=== PATIENT | female | born 1960 | race Caucasian/White ===

== ENCOUNTER 2016-07-12 13:22 | Emergency (ER) | payer MEDICARE ==
[2016-07-12 14:21] VITALS: BP 142/78
--- NOTE | 2016-07-12 14:40 | UC ---
Throat Pain/Nasal Malcolm HPI - HPI Summary HPI Summary: complaint of nasal congestion and cough that started 4 daysa ago non productive cough intermittent headaches, right ear feels plugged mild sore throat last week several bouts of N/V/D for 3 days denies fever and chills taking dayquil and robitussin for cough without relief hasn't used inhaler for symptoms during this illness. hx of rheumatoid arthritis and can't have remicade infusion until she feels better. has CT Scan for her lower back pain today - History of Current Complaint Chief Complaint: UCRespiratory Stated Complaint: COUGH, CONGESTION Hx Obtained From: Patient Hx Last Menstrual Period: 2002 - Allergies/Home Medications Allergies/Adverse Reactions: Allergies Allergy/AdvReac Type Severity Reaction Status Date / Time Amoxicillin Allergy GI Upset Verified 07/12/16 14:21 Cephalexin [From Keflex] Allergy Hives Verified 07/12/16 14:21 Simvastatin Allergy Fatigue Verified 07/12/16 14:21 PMH/Surg Hx/FS Hx/Imm Hx Previously Healthy: No - rhuematoid arthritis Endocrine History Of: Denies: Diabetes Cardiovascular History Of: Reports: Hypertension Denies: Pacemaker/ICD Respiratory History Of: Reports: Asthma, Bronchitis - HX OF BUT NOT RECENTLY LAST 08/2014 GI/ History Of: Denies: Renal Disease Psychological History Of: Reports: Anxiety - BIPOLAR, Depression - BIPOLAR - Surgical History Surgical History: Yes Surgery Procedure, Year, and Place: LAPROSCOPIC EDOMETRIOSIS, LT SHOULDER, HYSTERECTOMY, 1992 DISKECTOMY,LOW BACK SURGERY 2003 HEMILAMINECTOMY/DISKECTOMY, APPENDECTOMY, ARTHROSCOPIC ON BOTH KNEES, TOTAL RT KNEE REPLACEMENT, THROAT SURGERY,LEFT HAND SURGERY FOR BOXER FRACTURE - Family History Known Family History: Negative: Cardiac Disease, Hypertension, Diabetes - Social History Occupation: Disabled Lives: With Family Alcohol Use: None Substance Use Type: None Smoking Status (MU): Light Every Day Tobacco Smoker Type: Cigarettes Amount Used/How Often: 1/2 PPD X 7 YEARS Have You Smoked in the Last Year: Yes Cessation Counseling: Patient Advised to Stop Review of Systems Constitutional: Negative Skin: Negative Eyes: Negative ENT: Sore Throat, Nasal Discharge Respiratory: Cough Cardiovascular: Negative Gastrointestinal: Negative Genitourinary: Negative Motor: Negative Neurovascular: Negative Musculoskeletal: Negative Neurological: Negative Psychological: Negative All Other Systems Reviewed And Are Negative: Yes Physical Exam Triage Information Reviewed: Yes Appearance: No Pain Distress, Well-Nourished, Obese Vital Signs: Initial Vital Signs Temp 97.2 F 07/12/16 14:13 Pulse 108 07/12/16 14:13 Resp 24 07/12/16 14:13 BP 142/78 07/12/16 14:13 Pulse Ox 99 07/12/16 14:13 Vital Signs Reviewed: Yes Eyes: Positive: Conjunctiva Clear ENT: Positive: Pharyngeal erythema, Nasal congestion, Nasal drainage, TM bulging. Negative: TM red Neck: Positive: No Lymphadenopathy Respiratory: Positive: Lungs clear, Normal breath sounds, No respiratory distress Cardiovascular: Positive: RRR, No Murmur, Pulses Normal, Brisk Capillary Refill Abdomen Description: Positive: Nontender, Soft Bowel Sounds: Positive: Present Musculoskeletal: Positive: No Edema Neurological: Positive: Alert Psychological Exam: Normal Skin Exam: Normal Throat Pain/Nasal Course/Dx - Course Course Of Treatment: exam completed. advised to incease fluids d/t ct dye that she had today - Differential Dx/Diagnosis Differential Diagnosis/HQI/PQRI: Influenza, URI Provider Diagnoses: URI, eustachion tube dysfunction Discharge - Discharge Plan Condition: Stable Disposition: HOME Prescriptions: Benzonatate CAP* [Tessalon CAP*] 100 mg PO TID #30 cap Fluticasone NASAL SPRAY 50MCG* [Flonase NASAL SPRAY 50MCG*] 2 spray BOTH NARES DAILY #1 btl Patient Education Materials: Upper Respiratory Infection (ED), Eustachian Tube Dysfunction (GEN) Referrals: Abigail Sherman MD [Primary Care Provider] - Additional Instructions: VIRAL UPPER RESPIRATORY INFECTION (COMMON COLD) What is Viral Upper Respiratory Infection? Viral upper respiratory infection is the medical term for the common cold. Respiratory infections can be caused by either a virus or bacteria. The common cold is caused by a virus. The virus travels through the air and can be passed easily from one person to another. This is one reason that it is so important to cover your mouth when you cough or sneeze. When you cover your mouth you will get the virus on your hands. If you touch something with that hand the virus is spread to the object you touch. Because of this you should be sure to wash your hands often when you have a cold. Symptoms usually begin 1 to 3 days after the virus takes hold in your body. Other people can catch your cold even before you start to notice symptoms, which is one reason why colds are hard to prevent. Symptoms May Include: Scratchiness or tickling in the throat Sore throat Stuffy nose Generalized aches and pains Coughing or sneezing Feeling tired Treatment Recommendations: Drink plenty of clear, nonalcoholic fluids, such as water, sports drinks, or juice. For example, an average adult should drink 8 ounces every hour, a child 6 to 10 years should drink 4 ounces every hour, and a child under 6 should drink 1 to 2 ounces every hour. You should rest as much as possible. You can use a cool-mist humidifier or steam vaporizer to increase air moisture. This will make it easier to breathe. Remember that a steam vaporizer may contain hot water that can cause severe wyatt. If you smoke, stopsmoke irritates bronchial passages. If you are coughing up mucus, and milk seems to make the sputum thicker, do not eat or drink foods that contain milk. You want to try to cough up mucous whenever possible so that you dont get pneumonia. Do not use cough suppressant medicine without your healthcare providers [place]. You should take all medications prescribed until completely gone, or as instructed. Non-prescription medicine such as acetaminophen (Tylenol) or ibuprofen (Motrin , Advil) may help your aches, pains, and fever. Do not take someone else's medicine, or penicillin tablets that you may have saved. You could cause a more serious problem than you already have. Don't bundle up to sweat out a fever. It only makes your fever worse. If you feel cold, cover up; if you feel warm, dress lightly.
== END 2016-07-12 15:24 | disposition home or self-care (01) ==
LOC: UCCORT 13:22
DX: J06.9 Acute upper respiratory infection, unspecified (principal); H69.91 Unspecified Eustachian tube disorder, right ear; E66.9 Obesity, unspecified; F17.210 Nicotine dependence, cigarettes, uncomplicated; Z96.651 Presence of right artificial knee joint; Z88.1 Allergy status to other antibiotic agents; Z88.8 Allergy status to other drugs, medicaments and biological substances; M51.36 Other intervertebral disc degeneration, lumbar region; M47.896 Other spondylosis, lumbar region; M48.06 Spinal stenosis, lumbar region; M51.27 Other intervertebral disc displacement, lumbosacral region; M96.1 Postlaminectomy syndrome, not elsewhere classified
CPT/HCPCS: 72158; 87502; 99212; A9579; G0463

== ENCOUNTER 2016-12-19 09:19 | Emergency (ER) | payer MEDICARE ==
--- NOTE | 2016-12-19 09:23 | UC ---
Minor Trauma HPI - HPI Summary HPI Summary: 56 year old female presents with left rib/hand/wrist pain post fall this weekend. - History of Current Complaint Stated Complaint: LEFT RIB, LEFT WRIST PAIN-FALL Time Seen by Provider: 12/19/16 09:22 Hx Last Menstrual Period: 2002 - Allergies/Home Medications Allergies/Adverse Reactions: Allergies Allergy/AdvReac Type Severity Reaction Status Date / Time Amoxicillin Allergy GI Upset Verified 12/19/16 09:30 Cephalexin [From Keflex] Allergy Hives Verified 12/19/16 09:30 Simvastatin Allergy See Comment Verified 12/19/16 09:30 Home Medications: Home Medications Fluticasone NASAL SPRAY 50MCG* [Flonase NASAL SPRAY 50MCG*] 2 spray BOTH NARES DAILY PRN 12/19/16 [History Confirmed 12/19/16] PMH/Surg Hx/FS Hx/Imm Hx - Surgical History Surgical History: Yes Surgery Procedure, Year, and Place: LAPROSCOPIC EDOMETRIOSIS, LT SHOULDER, HYSTERECTOMY, 1992 DISKECTOMY,LOW BACK SURGERY 2003 HEMILAMINECTOMY/DISKECTOMY, APPENDECTOMY, ARTHROSCOPIC ON BOTH KNEES, TOTAL RT KNEE REPLACEMENT, THROAT SURGERY,LEFT HAND SURGERY FOR BOXER FRACTURE - Family History Known Family History: Negative: Cardiac Disease, Hypertension, Diabetes - Social History Alcohol Use: None Substance Use Type: None Smoking Status (MU): Light Every Day Tobacco Smoker Type: Cigarettes Amount Used/How Often: 1/2 PPD X 7 YEARS Have You Smoked in the Last Year: Yes Review of Systems Constitutional: Negative Skin: Negative Eyes: Negative ENT: Negative Respiratory: Negative Cardiovascular: Negative Gastrointestinal: Negative Genitourinary: Negative Motor: Negative Neurovascular: Negative Musculoskeletal: Myalgia - left rib/hand/wrist swelling and pain Neurological: Negative Psychological: Negative All Other Systems Reviewed And Are Negative: Yes Physical Exam Triage Information Reviewed: Yes Eye Exam: Normal ENT Exam: Normal Dental Exam: Normal Neck exam: Normal Neck: Positive: 1 Respiratory Exam: Normal Cardiovascular Exam: Normal Abdominal Exam: Normal Musculoskeletal: Positive: Strength Limited @, ROM Limited @, Other: - left rib/ hand/wrist swelling and pain Neurological Exam: Normal Psychological Exam: Normal Skin Exam: Normal Minor Trauma Course/Dx - Differential Dx/Diagnosis Provider Diagnoses: left rib/hand/wrist sprain/contusion Discharge - Discharge Plan Condition: Stable Disposition: HOME Prescriptions: Acetaminop/Codeine 30 MG TAB* [Tylenol/Codeine 30 MG TAB*] 1 tab PO Q6H PRN #12 tab MDD 4 PRN Reason: Pain - Moderate To Severe Ibuprofen TAB* [Motrin TAB* 800 MG] 800 mg PO Q8H PRN #30 tab PRN Reason: Pain - Moderate Methocarbamol [Robaxin-750 MG TAB] 750 mg PO TID PRN #30 tab PRN Reason: Spasms Patient Education Materials: Rib Contusion (ED), Hand Sprain (ED) Referrals: Abigail Sherman MD [Primary Care Provider] - If Needed
[2016-12-19 09:47] VITALS: BP 141/60
--- NOTE | 2016-12-19 10:15 | RAD ---
Indication: Left hand pain. 2 views of left hand demonstrates mild joint space narrowing between the second and fifth proximal and distal interphalangeal joints. No fracture is noted. IMPRESSION: NO FRACTURE IS NOTED.
--- NOTE | 2016-12-19 10:16 | RAD ---
Indication: Left rib pain. 3 views of left ribs demonstrates no fracture of the left ribs. No significant displacement is noted. IMPRESSION: No definite fracture of left ribs is identified.
== END 2016-12-19 10:27 | disposition home or self-care (01) ==
LOC: UCCORT 09:19
DX: R07.81 Pleurodynia (principal); S63.502A Unspecified sprain of left wrist, initial encounter; S60.212A Contusion of left wrist, initial encounter; F17.210 Nicotine dependence, cigarettes, uncomplicated; W19.XXXA Unspecified fall, initial encounter; Y92.9 Unspecified place or not applicable
CPT/HCPCS: 99212; G0463

== ENCOUNTER 2018-03-21 14:14 | Emergency (ER) | payer MEDICARE ==
--- OUTSIDE RECORDS SUMMARY | 2018-03-21 14:36 | XMS REPORT ---
:1960 External Reference #:[id number] Author Organization [facility] 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 Part B Policy Number: [id number] [facility] Kamila Parker PayID: [id number] [address] [place] [address] Medicare Primary Effective: 2008 Policy Number: Medicare Kamila Parker [id number] Expires: 2018 PayID: [id number] [address] [place] [address] Commercial Expires: 2010 Policy Number: [id number] Osheaanita Parker PayID: [id number] [address] [address] [place] [address] Medicaid Expires: 2007 Policy Number: [id number] Medicaid Kamila Parker Group Name: 1 1 [address] PayID: [id number] [place] [address] Problems Date Description Provider Status Onset: 08/02/2010 FX Base Of Other Metacarpal Megha Trent N.P. Active Bone(S) Closed Onset: 12/27/2010 Closed fracture of lower end of Madhav Alvarado MD, [facility] Active radius AND ulna Onset: 09/21/2011 Abdominal pain Giovani Murry Active M.DJaime Onset: 11/10/2011 Localized, primary Rosalio Gaston MD Active osteoarthritis Onset: 11/10/2011 Pes anserinus tendinitis and Rosalio Gaston MD Active bursitis Onset: 12/26/2011 Generalized abdominal pain Giovani Murry Active M.Nicole Onset: 03/08/2012 Tobacco user Giovani Murry Active M.D. 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 Active and thigh Onset: 09/20/2016 Trochanteric bursitis Ricardo Oropeza M.D. Active Onset: 02/01/2018 Arthroplasty of knee Georgie White MD Active Onset: 02/01/2018 Aftercare following joint Georgie White MD Active replacement surgery Family History Date Family Member(s) Problem(s) Comments General Non Contributory Mother Osteoporosis Mother due to Natural Causes () First Sister Fibromyalgia First Sister Osteoarthritis Grandfather Cancer Grandfather due to Prostate Cancer () Grandmother Diabetes Grandmother Glaucoma Social History Type Date Description Comments Marital Status Single Lives With Alone Home Environment Lives Alone Diet Patient is on a gluten-free diet Occupation Disabled Work Status Disabled Cigarette Use 2011 currently smokes 1/2 Pack Daily Smokeless Tobacco Never Used Smokeless Tobacco ETOH Use Denies alcohol use Smoking Patient is a current smoker, smokes every day Recreational Drug Use Denies Drug Use Daily Caffeine Consumes on average 3 cups of regular coffee per day Allergies, Adverse Reactions, Alerts Date Description Reaction Status Severity Comments 07/10/2008 Simvastatin active dizziness, increases bp, skin redness 07/10/2008 Cephalexin active Hives Amoxicillin GI upset active Medications Medication Date Status Form Strength Qnty SIG Indications Ordering Provider Spacer 01/16 Active Diagnosis J45.20 : Mild MD Tay intermitt ent asthma Montelukast 01/16 Active Tablets 10mg 30tab take 1 J30.89 s tablet MD Tay daily. Flovent HFA 10/12 Active Aerosol 110mcg/Ac 12gm take 1 J45.20 t puff MD Tay twice a day. rinse mouth after use. Loperamide HCL 06/19 Active Capsules 2mg 90cap Take One R19.7 s Capsule MD Robson By Mouth Three Times A Day as Needed Apriso 05/08 Active Caps ER 0.375gm 120ca Take Four 24HR ps Capsules MD Robson By Mouth Every Day In The Morning Gabapentin Active 800mg 1 by Unknown /0000 mouth every morning and 2 by mouth every night Pravastatin Active 80mg 1 by Unknown Sodium /0000 mouth every day Clonazepam Active 0.5mg 1 by Unknown /0000 mouth three times a day as needed Albuterol Active 2 puffs Unknown /0000 four times a day as needed Folic Acid Active Tablets 1mg 30tab 1 by Raghu Sahu /0000 s chiara Sanchez MD, PhD every day Lisinopril Active Tablets 10mg 90tab 1 by Raghu Sahu /0000 s chiara Sanchez MD, PhD every day Savella Active Tablets 50mg 1 by Unknown /0000 mouth twice a day Lamotrigine Active Tablets 150mg 1 tab by Unknown /0000 mouth every day Methotrexate Active Tablets 2.5mg 8 tab Unknown /0000 weekly Hydrocodone-Acet Active Tablets 10-325mg 30tab 1 tab by Unknown aminophen /0000 s mouth every 6 hours as needed Aspirin Active Tablets DR 81mg 1 by Unknown /0000 mouth every day Promethazine HCL Active Tablets 25mg 1 tab as Unknown /0000 needed Amlodipine Active Tablets 5mg Take One Unknown Besylate /0000 Tablet By Mouth Every Day Quetiapine Active Tablets 50mg 2 by Unknown Fumarate /0000 mouth every day Duloxetine HCL Active Caps DR 60mg Take One Unknown 0000 Part Capsule By Mouth Every Day Nexium Active Capsules 40mg Take One Unknown /0000 DR Capsule By Mouth Every Day Meclizine HCL Active Tablets 25mg Take One Unknown 0000 Tablet By Mouth Three Times A Day as Needed Baclofen Active Tablets 10mg Take 1 2 Unknown /0000 1 Tablet By Mouth Three Times A Day as Needed Embeda Active Capsules 20-0.8mg Take One Unknown 0000 ER Capsule By Mouth Once A Day as Needed Maximum Daily Dose 1 Cetirizine HCL Active Chewtabs 10mg 1 tab by Unknown / mouth every daily as needed Levaquin 06/06 Hx Tablets 750mg 7tabs take 1 tablet MD Tay - daily for 10/03 7 days. Nexium 04/27 Hx Capsules 20mg 90cap 1 by R19.7 Yara, /2017 DR s chiara Chance MD - every day 11/09 Lactaid Fast Act 04/27 Hx Tablets 9000Unit 90tab 1 tab by R1. s mouth MD Robson three times a day with meals Imodium A-D 04/27 Hx Tablets 2mg 90tab 1 tab .7 s three MD Robson - times a 06/19 day needed Golytely 04/06 Hx Solution 236gm 4000m drink R1. Rec l half the MD Rboson evening before and half the morning of the procedure (1 cup every 10') Dulcolax 04/[address] 5mg 4tabs 4 tablets . taken a MD Robson 8pm the day before the procedure Citroma 04/06 Hx Solution 1.745GM/3 296ml drink 1 . 0ML bottle at MD Robson 12pm (noon)the day before the procedure Budesonide 03/[address] 3mg 90cap 1 by K52.832 Part s chiara Chance MD - three 04/27 times a day Pentasa 07/23 Hx Capsules 500mg 30cap 1 [facility] Giovani Trujillo M.D. 09/20 Asacol HD 07/[address] 800mg 90tab take 1 K52.9 , s tablet by Giovani - mouth Radha Trujillo 09/20 times a day Levaquin 06/03 Hx Tablets 500mg 10tab 1 by Jeanmarie, s mouth Giovani - every day Radha Trujillo 09/20 x10 - finish Monday. Metronidazole 06/03 Hx Tablets 500mg 30tab 1 by Jeanmarie, s mouth Giovani - three Radha Trujillo 12/27 times day Promethazine HCL 12/20 Hx Tablets 25mg 30tab by mouth Jeanmarie, s every 4 Giovani - to 6 Radha Trujillo 09/20 hours needed Synvisc 10/03 Hx Injection 8mg/ml 3syri 715.16 Alek, adri Braden, - eliza HARDIN 12/04 inject weekly Promethazine HCL 03/14 Hx Tablets 12.5mg 60tab 1 po bid 789.07 Tanmay, s prn Giovani Trujillo M.D. Promethazine HCL 03/08 Hx Suppositor 25mg 50uni 1 po bid 789.07 Jeanmarie, y ts prn Giovani Trujillo M.D. 03/14 Levaquin 02/15 Hx Tablets 750mg 1tabs po x1 [facility], Giovani Trujillo M.D. 02/25 Percocet 08/13 Hx Tablets 5-325mg 60tab 1 tab q4h DeThomcarrillo, s prn Demian Galloway MD 09/01 Zithromax Z-Bautista 08/04 Hx Tablets 250mg as 815.02 Twan, directed Megha Sanchez - N.P. 09/01 Clindamycin HCL 08/02 Hx Capsules 300mg 40cap every 6 V67.09 s hours x Megha Sanchez, - 10 days N.P. 09/01 Pruden 08/02 Hx Tablets 5-325mg 30tab 1 tab po V67.09 s q4h prn Megha Sanchez, - pain N.P. 09/01 Percocet 04/19 Hx Tablets 7.5-325mg 40tab 1 tab by s mouth Megha Sanchez, - every 4 N.P. 04/25 hours needed Tramadol HCL Hx 50mg 1-2 tabs four - times a 03/05 day needed Nexium Hx 40mg po qd - 04/27 Opana / Hx Unknown / - 12/22 Lamictal Hx 150mg po qd - 09/20 Fentanyl Hx Patches 100mcg/HR 72HR - 12/22 Ambien CR Hx 12.5mg po qd - 08/01 Nasonex 00/ Hx Unknown / Vicoprofen Hx Unknown / Pruden Hx Tablets 10-325mg 1-2 tabs Adelina po bryan Sanchez MD, PhD - prn 09/20 Methotrexate Hx Tablets 2.5mg 8 tabs Adelina qpaulo Sanchez MD, PhD - 11/07 Prednisone Hx Tablets 5mg 1/2 tab Adelina po yahir Sanchez MD, PhD - 06/07 Sulfasalazine Hx Tablets 500mg 3 by mouth - twice a /2017 Oxycodone/Acetam Hx Tablets 5-325mg 1 prn Unknown inophen / - 09/01 Remicade Hx Solution 500mg inject Unknown Rec every 4-8 - weeks 11/09 Promethazine HCL Hx Tablets 25mg 30tab po q4-6h Unknown s prn Warfarin Sodium Hx Tablets 4mg Unknown /0000 Vesicare 00/ Hx Tablets 5mg 1 by Unknown /0000 mouth - every day 11/09 Acidophilus Hx Capsules 2 by Unknown /0000 mouth - onces a Cyclobenzaprine Hx Tablets 10mg Unknown HCL /0000 - 09/20 Citalopram Hx Tablets 20mg Take One Unknown Hydrobromide /0000 Tablet By - Mouth 11/09 Oxycodone-Acetam Hx Tablets 5-325mg Take 1 2 Unknown inophen /0000 Tablets - By Mouth 09/20 Every Hours as Needed For Pain Maximum [place] Senexon-S Hx Tablets 8.6-50mg Take Two Unknown /0000 Tablets - By Mouth 09/20 For 14 Days Dexamethasone Hx Tablets 1mg Unknown / - 09/20 Lidocaine Hx Powder Unknown / - 09/20 Fluticasone Hx Suspension 50mcg/Act Unknown Propionate / - 09/20 Benzonatate Hx Capsules 100mg Take One Unknown /0000 Capsule - By Mouth 09/20 Times A Day Proair HFA Hx Aerosol 108(90Bas Inhale Unknown /0000 e) Two Puffs - mcg/Act By Mouth 09/20 Times A Day as Needed For Shortness Of Prednisone Hx Tablets 5mg Take Four Unknown /0000 Tablets - By Mouth 09/20 For 4 Days Then Decrease By 1 Tab Lamotrigine Hx Tablets 200mg Take One Unknown /0000 Tablet By - Mouth 09/20 Folic Acid Hx Tablets 1mg Take One Unknown /0000 Tablet By - Mouth 12/27 Promethazine HCL / Hx Tablets 12.5mg Take One Unknown /0000 Tablet By - Mouth 09/20 Hours as Needed For Nausea Citalopram Hx Tablets 10mg Take One Unknown Hydrobromide /0000 Tablet By - Mouth 09/20 For 7 Days Dicyclomine HCL / Hx Tablets 20mg Unknown /0000 - 09/[address] [address]Iyzc Unknown /0000 Part - 12/[address] 3mg Take Unknown /0000 Part Three - Capsules 09/20 By Mouth Every Day Vitamin D Hx Capsules 00070Nnvm Take 1 Unknown (Ergocalciferol) /0000 Capsule - By Mouth 12/27 Week Cyclobenzaprine Hx Tablets 10mg 1 by Unknown HCL / mouth - three 03/05 times day as needed muscle spasms Prednisone Hx Tablets 5mg 1 tab po Unknown / qd Acidophilus Hx Capsules take one Unknown /0000 capsule twice a day Aspirin Ec Hx Tablets DR 325mg 1 by Unknown /0000 mouth twice per day Medications Administered in Office Medication Date Status Form Strength Qnty SIG Indications Ordering Provider Depomedrol Administered Injection Lawsing, 40mg/1cc 014 Madhav Guzman MD, FACS Synvisc/Synvis Administered Injection Alek, c-One Avelina Braden MD Synvisc/Synvis Administered Injection Alek, c-One Avelina Braden MD Synvisc/Synvis Administered Injection Alek, c-One Avelina Braden MD Depomedrol Administered Injection Alek, 40mg/1cc Avelina Braden MD Depomedrol Administered Injection Alek, 40mg/1cc Cristine Braden MD Depomedrol Administered Injection Alek, 40mg/1cc 012 Rosalio Braden MD Depomedrol Administered Injection Alek, 40mg/1cc 012 Rosalio Braden MD Depomedrol Administered Injection Kristopher, 40mg/1cc Ebenezer Baldwin MD Depomedrol Administered Injection Kristopher, 40mg/1cc 009 Ethel Baldwin MD Depomedrol Administered Injection Kristopher, 40mg/1cc 008 Ethel Baldwin MD Hyalgan Administered Injection Kristopher, 20mg/Syringe 008 Ethel Baldwin MD prefilled Hyalgan Administered Injection Kristopher, 20mg/Syringe 008 Ethel Baldwin MD prefilled Hyalgan Administered Injection Kristopher, 20mg/Syringe 008 Ethel Baldwin MD prefilled Hyalgan Administered Injection Kristopher, 20mg/Syringe 008 Ethel Baldwin MD prefilled Hyalgan Administered Injection Kristopher, 20mg/Syringe 008 Ethel Baldwin MD prefilled Depomedrol Administered Injection Kristopher, 40mg/1cc Génesis Baldwin MD Depomedrol Administered Injection Kristopher, 40mg/1cc Jagdeep Baldwin MD Depomedrol Administered Injection Kristopher, 40mg/1cc 007 Ethel Baldwin MD Vital Signs Date Vital Result Comment 03/21/2018 BP Systolic 172 mmHg BP Diastolic 80 mmHg Body Temperature 97.7 F Heart Rate 103 /min Height 63 inches 5'3" Weight 253.00 lb BMI (Body Mass Index) 44.8 kg/m2 BSA (Body Surface Area) 2.14 m2 [place] body weight in kilograms 52 O2 % BldC Oximetry 95 % Pain Level 8 03/05/2018 BP Systolic Sitting Right Arm 143 mmHg BP Diastolic Sitting Right Arm 78 mmHg Body Temperature 97.7 F Heart Rate 82 /min Respiratory Rate 18 /min Height 63 inches 5'3" Weight 260.38 lb BMI (Body Mass Index) 46.1 kg/m2 BSA (Body Surface Area) 2.16 m2 [place] body weight in kilograms 52 O2 % BldC Oximetry 94 % 01/24/2018 BP Systolic 137 mmHg BP Diastolic 84 mmHg Body Temperature 98.1 F Heart Rate 78 /min Height 63 inches 5'3" Weight 262.00 lb BMI (Body Mass Index) 46.4 kg/m2 BSA (Body Surface Area) 2.17 m2 [place] body weight in kilograms 52 O2 % BldC Oximetry 97 % Pain Level 8 01/16/2018 BP Systolic Sitting Left Arm 114 mmHg BP Diastolic Sitting Left Arm 66 mmHg Heart Rate 82 /min Respiratory Rate 20 /min Height 63 inches 5'3" Weight 263.00 lb BMI (Body Mass Index) 46.6 kg/m2 BSA (Body Surface Area) 2.17 m2 [place] body weight in kilograms 52 O2 % BldC Oximetry 94 % 12/25/2017 BP Systolic 138 mmHg BP Diastolic 79 mmHg Body Temperature 98.8 F Heart Rate 89 /min Respiratory Rate 15 /min Height 63 inches 5'3" Weight 255.00 lb BMI (Body Mass Index) 45.2 kg/m2 BSA (Body Surface Area) 2.14 m2 [place] body weight in kilograms 52 O2 % BldC Oximetry 96 % Room Air Pain Level 8 11/27/2017 BP Systolic Sitting Left Arm 138 mmHg BP Diastolic Sitting Left Arm 85 mmHg Body Temperature 97.8 F Heart Rate 102 /min Respiratory Rate 19 /min Height 64 inches 5'4" Weight 158.00 lb BMI (Body Mass Index) 27.1 kg/m2 BSA (Body Surface Area) 1.77 m2 [place] body weight in kilograms 54 O2 % BldC Oximetry 94 % 11/09/2017 BP Systolic Sitting Left Arm 147 mmHg BP Diastolic Sitting Left Arm 73 mmHg Body Temperature 98.9 F Heart Rate 80 /min Respiratory Rate 17 /min Height 64 inches 5'4" Weight 258.00 lb BMI (Body Mass Index) 44.3 kg/m2 BSA (Body Surface Area) 2.18 m2 [place] body weight in kilograms 54 O2 % BldC Oximetry 97 % 10/12/2017 BP Systolic Sitting Left Arm 118 mmHg BP Diastolic Sitting Left Arm 68 mmHg Heart Rate 110 /min Respiratory Rate 16 /min Height 64 inches 5'4" Weight 257.00 lb BMI (Body Mass Index) 44.1 kg/m2 BSA (Body Surface Area) 2.18 m2 [place] body weight in kilograms 54 O2 % BldC Oximetry 97 % Ora 10/03/2017 BP Systolic 156 mmHg BP Diastolic 92 mmHg Body Temperature 97.9 F Heart Rate 88 /min Respiratory Rate 15 /min Height 64 inches 5'4" Weight 256.00 lb BMI (Body Mass Index) 43.9 kg/m2 BSA (Body Surface Area) 2.17 m2 [place] body weight in kilograms 54 Pain Level 9 06/07/2017 BP Systolic Sitting Left Arm 144 mmHg BP Diastolic Sitting Left Arm 82 mmHg Heart Rate 117 /min Respiratory Rate 16 /min Height 64 inches 5'4" Weight 255.00 lb BMI (Body Mass Index) 43.8 kg/m2 BSA (Body Surface Area) 2.17 m2 [place] body weight in kilograms 54 O2 % BldC Oximetry 94 % 04/27/2017 BP Systolic Sitting Left Arm 128 mmHg BP Diastolic Sitting Left Arm 82 mmHg Heart Rate 102 /min Respiratory Rate 16 /min Height 64 inches 5'4" Weight 252.00 lb BMI (Body Mass Index) 43.3 kg/m2 BSA (Body Surface Area) 2.16 m2 [place] body weight in kilograms 54 04/06/2017 BP Systolic Sitting Left Arm 124 mmHg BP Diastolic Sitting Left Arm 80 mmHg Heart Rate 81 /min Respiratory Rate 16 /min Height 64 inches 5'4" Weight 253.00 lb BMI (Body Mass Index) 43.4 kg/m2 BSA (Body Surface Area) 2.16 m2 [place] body weight in kilograms 54 03/16/2017 BP Systolic Sitting Left Arm 130 mmHg BP Diastolic Sitting Left Arm 84 mmHg Heart Rate 86 /min Respiratory Rate 16 /min Height 64 inches 5'4" Weight 253.00 lb BMI (Body Mass Index) 43.4 kg/m2 BSA (Body Surface Area) 2.16 m2 [place] body weight in kilograms 54 09/20/2016 BP Systolic 130 mmHg BP Diastolic 82 mmHg Heart Rate 76 /min Height 64 inches 5'4" Weight 245.00 lb BMI (Body Mass Index) 42.0 kg/m2 BSA (Body Surface Area) 2.13 m2 [place] body weight in kilograms 54 05/14/2015 BP Systolic Sitting Left Arm 167 mmHg BP Diastolic Sitting Left Arm 87 mmHg Heart Rate 95 /min Respiratory Rate 18 /min Height 64 inches 5'4" Weight 244.00 lb BMI (Body Mass Index) 41.9 kg/m2 BSA (Body Surface Area) 2.13 m2 03/10/2014 BP Systolic Sitting Left Arm 138 mmHg BP Diastolic Sitting Left Arm 78 mmHg Height 64 inches 5'4" Weight 245.00 lb BMI (Body Mass Index) 42.0 kg/m2 BSA (Body Surface Area) 2.13 m2 03/02/2012 Height 64 inches 5'4" Weight 248.00 lb BMI (Body Mass Index) 42.6 kg/m2 09/21/2011 BP Systolic Sitting Right Arm 126 mmHg BP Diastolic Sitting Right Arm 75 mmHg Heart Rate 96 /min Respiratory Rate 20 /min Height 64 inches 5'4" Weight 280.00 lb BMI (Body Mass Index) 48.1 kg/m2 08/02/2010 Weight 240.00 lb 01/21/2010 Weight 225.00 lb 12/04/2008 Height 64 inches 5'4" Weight 232.00 lb BMI (Body Mass Index) 39.8 kg/m2 Results Test Date Test Result H/L Range Note Fluid Culture W/ Gram 03/09/2018 Gram Stain NO ORGANISMS SEE <SEE 1, 2 Stain NOTE> Fluid Culture NO GROWTH: FINAL <SEE NOTE> 1, 3 Synovial FLD cc/Diff 03/09/2018 Synovial FLD Source LEFT KNEE 1 Synovial FLD Color ORANGE 1 Synovial FLD Appearance HAZY 1 Synovial FLD WBC 154 /uL 0-200 1 Synovial FLD RBC 89147 /uL -57848 1 Synovial FLD Poly 11 % 0-25 1 Synovial Fluid Lymphs 35 % 1 Synovial Monocytes 49 % 1 Synovial Fluid Eosinophils 1 % 1 Synovial FLD Other Cell 4 % 1, 4 Synovial FLD Diff Comment . 1, 5 Laboratory test 03/09/2018 Synovial FLD NO CRYSTALS SEEN None Seen 1, 6 finding Crystals Gram Stain 03/09/2018 Gram Stain NO ORGANISMS SEE 1, 7 <SEE NOTE> CBC W/Automated Diff 03/05/2018 White Blood Count 5.7 K/uL 3.1-10.7 8 Red Blood Count 4.02 M/uL 3.90-5.40 8 Hemoglobin 10.6 gm/dL Low 11.6-15.8 8 Hematocrit 34.8 % Low 36.0-46.1 8 Mean Cell Volume 86.6 fl 80.9-99.0 8 Mean Corpuscular HGB 26.4 pg 25.9-32.7 8 Mean Corpuscular HGB Conc 30.5 g/dL Low 30.8-34.3 8 Platelet Count 224 K/uL 155-360 8 Red Cell Distri Width SD 48.3 fl High 3-47 8 Red Cell Distri Width %CV 15.6 % High 11.7-14.4 8 Mean Platelet Volume 9.5 fL 8.9-12.4 8 Neut% 64.4 % 40.4-72.8 8 Lymph % 27.9 % 20.0-42.0 8 [place] % 3.4 % Low 4.3-13.2 8 Eo% 4.1 % 0.0-6.6 8 Bas% 0.2 % 0.0-1.1 8 Neut# 3.65 K/uL 1.8-7.0 8 Lymph # 1.58 K/uL 1.0-4.0 8 [place] # 0.19 K/uL Low 0.3-0.9 8 Eos # 0.23 K/uL 0.0-0.5 8 Baso # 0.01 K/uL 0.0-0.1 8 Laboratory test finding 03/05/2018 Sedimentation Rate 64 mm/hr High 0-30 8, 9 C-Reactive Protein,Quant 42.9 mg/L High <3.0 8 Hemoglobin/Hematocrit 12/13/2017 Hemoglobin 9.9 gm/dL Low 11.6-15.8 10 Hematocrit 31.3 % Low 36.0-46.1 10 Hemoglobin/Hematocrit 12/12/2017 Hemoglobin 9.8 gm/dL Low 11.6-15.8 10 Hematocrit 30.4 % Low 36.0-46.1 10 Basic Metabolic Panel 12/11/2017 Glucose 198 mg/dL High 74-106 10 BUN 10 mg/dL 7-18 10 Creatinine 1.1 mg/dL 0.6-1.3 10 Glom Filtration Rate, Estimate 55 mL/min >60 10 If >60 mL/min >60 10, 11 BUN/Creat 9.0 ratio 10 Sodium 142 mmol/L 136-145 10 Potassium 4.2 mmol/L 3.5-5.1 10 Chloride 108 mmol/L High 98-107 10 Carbon Dioxide 25 mmol/L 21-32 10 Anion Gap 9 mEq/L 8-16 10 Calcium 8.6 mg/dL 8.5-10.1 10 MRSA Screen 11/27/2017 MRSA Screen NO METHICILLIN R 12, 13 <SEE NOTE> Anion Gap 05/25/2017 Anion Gap 8 8-16 SerPl-sCnc SerPl-sCnc BUN/Creat SerPl 05/25/2017 BUN/Creat SerPl 18.5 Chloride SerPl-sCnc 05/25/2017 Chloride 106 98-107 SerPl-sCnc Potassium 05/25/2017 Potassium 3.8 3.5-5.1 SerPl-sCnc SerPl-sCnc Serum carbon 05/25/2017 Serum carbon 27 21-32 dioxide measurement dioxide measurement Serum or plasma 05/25/2017 Serum or plasma 9.4 8.5-10. calcium measurement calcium 1 (mass/volume) measurement (mass/volume) Serum or plasma 05/25/2017 Serum or plasma 0.7 0.6-1.3 creatinine creatinine measurement measurement (mass/volum (mass/volume) Serum or plasma 05/25/2017 Serum or plasma 135 High 74-106 glucose measurement glucose (mass/volume) measurement (mass/volume) Serum sodium 05/25/2017 Serum sodium 141 136-145 measurement measurement Inflammatory Bowel 04/15/2017 Atypical pANCA <1:20 titer Neg:<1: 14, 15 Disease 20 Saccharomyces cerevisiae, IgG < 20.0 units 0.0-24.9 14, 16 Saccharomyces cerevisiae, IgA < 20.0 units 0.0-24.9 14, 17 Laboratory test finding 03/17/2017 Calprotectin, Fecal 40 ug/g 0-120 14 , 18 Pancreatic Elastase (Pe-1) > 500.0 ug/g >200 14, 19 Laboratory test finding 03/16/2017 Sedimentation Rate 28 mm/hr 0-30 14, 20 C-Reactive Protein,Cardiac 13.70 mg/L <3.0 14 Order 12/27/2016 Wrist Splint 8" Lace Up <pending> Seude Leatherette LT Small Laboratory test finding 06/25/2015 Duodenum, Biopsy See Note 21 Porphyrins, Fecal 06/17/2015 Coproporphyrin, fecal < 12.0 0.0-44.9 22 Protoporphyrin, fecal < 12.0 0.0-150.0 23 Laboratory test finding 06/17/2015 C. Difficile Toxin A/B See Note 24 Laboratory test finding 05/21/2015 t-Transglutaminase IgA <2 U/mL 0-3 25 Gliadin IgG/IgA Antibodies 05/21/2015 Antigliadin Abs, IgG 1 units 0-19 26 Antigliadin Abs, IgA 3 units 0-19 27 Endomysial Antibody Iga 05/14/2015 Endomysial IgA Antibody Negative Negative t-Transglutaminase IgA <2 U/mL 0-3 28 Gliadin IgG/IgA Antibodies 05/14/2015 Antigliadin Abs, IgG 2 units 0-19 29 Antigliadin Abs, IgA 3 units 0-19 30 Laboratory test finding 05/14/2015 t-Transglutaminase IgA <2 U/mL 0-3 31 Laboratory test finding 05/02/2015 Urine Bilirubin Negative Negative Urine Blood Negative Negative Urine Clarity SL Cloudy Clear Urine Color DK Yellow Yellow Urine Glucose (Ua) Negative Negative Urine Ketones Negative Negative Urine Leukocyte Esterase Negative Negative Urine Nitrite Negative Negative Urine Protein Negative Negative Urine Specific [place] 1.020 1.010-1.030 Urine Urobilinogen 0.2 0.2-1.0 Urine pH 5.5 Low 6.5-7.5 Laboratory test finding 05/02/2015 Alanine Aminotransferase (Alt/SGPT) 24 12-78 Albumin 4.0 3.4-5.0 Albumin/Globulin Ratio 1.1 Alkaline Phosphatase 92 45-117 Anion Gap 6 Low 8-16 Aspartate Amino Transf (Ast/Sgot) 14 Low 15-37 BUN/Creatinine Ratio 12.5 Basophils # (Auto) 0.03 0.0-0.1 Basophils (%) (Auto) 0.7 0.0-1.1 Blood Urea Nitrogen 10 7-18 Calcium Level 9.2 8.5-10.1 Carbon Dioxide Level 29 21-32 Chloride Level 104 98-107 Creatinine 0.8 0.6-1.3 Eosinophils # (Auto) 0.18 0.0-0.5 Eosinophils (%) (Auto) 3.9 0.0-6.6 Globulin 3.7 1.9-4.3 Glucose Screen 92 74-106 Hematocrit 36.4 36.0-46.1 Hemoglobin 11.9 11.6-15.8 Lipase 52 Low 73-393 Lymphocytes # (Auto) 1.91 1.8-7.0 Lymphocytes (%) (Auto) 41.4 17.0-46.1 Mean Corpuscular Hemoglobin 32.1 25.9-32.7 Mean Corpuscular Hemoglobin Concent 32.7 30.8-34.3 Mean Corpuscular Volume 98.1 80.9-99.0 Mean Platelet Volume 8.9 8.9-12.4 Monocytes # (Auto) 0.28 Low 0.3-0.9 Monocytes (%) (Auto) 6.1 4.3-13.2 Neutrophils # (Auto) 2.21 1.0-7.0 Neutrophils (%) (Auto) 47.9 40.4-72.8 Platelet Count 197 155-360 Potassium Level 3.9 3.5-5.1 RDW Coefficient of Variation 13.0 11.7-14.4 Red Blood Count 3.71 Low 3.90-5.40 Red Cell Distribution Width 45.4 3-47 Sodium Level 139 136-145 Total Bilirubin 0.2 0.2-1.0 Total Protein 7.7 6.4-8.2 White Blood Count 4.6 3.1-10.7 Laboratory test 04/15/2015 Cryptosporidium Antigen Negative For finding Cryptosporidium Specific Antigen Giardia Antigen (Balwinder) Negative For Giardia Specific Antigen. Shiga Toxin Test Shiga Toxin 1 Not Detected Stool Culture Organism: No Enteric Pathogens Isolated Laboratory test finding 02/28/2012 Polyp Colon And/Or Rectum See Note 32 Laboratory test finding 08/11/2010 Prosthesis/Prosthetic See Note 33 Device Routine Culture W/ Gram Stain 08/11/2010 Gram Stain See Note 34 Aerobic Culture See Note 35 Anaerobic Culture W/ GR Stain 08/11/2010 Gram Stain; Anaerobic See Note 36 Specimen Anaerobic Culture See Note 37 Urine Screen 08/09/2010 Urine Color YELLOW Yellow Urine Clarity CLEAR Clear Urine Glucose - Dipstick NEGATIVE mg/dL Negative Urine Bilirubin - Dipstick NEGATIVE Negative Urine Ketone NEGATIVE mg/dL Negative Urine Specific Harwood 1.025 1.010-1.030 Urine Blood NEGATIVE Negative Urine PH 5.5 Low 6.5-7.5 Urine Protein - Dipstick NEGATIVE mg/dL Negative Urine Urobilinogen - Dipstick 0.2 E.U./dL 0.2-1.0 Urine Nitrite - Dipstick NEGATIVE Negative Urine Leuk Esterase NEGATIVE Negative Laboratory test finding 08/09/2010 Act Partial Thrombo 32.2 seconds 23.4- 37.4 38 Time Protime 08/09/2010 Protime 12.8 seconds 12.2-15.2 Inr 0.9 0.9-1.1 39 CBC 08/09/2010 White Blood Count 5.1 K/uL 3.1-10.7 Red Blood Count 4.22 M/uL 3.90-5.40 Hemoglobin 12.7 gm/dL 11.6-15.8 Hematocrit 39.1 % 36.0-46.1 Mean Cell Volume 92.7 fl 80.9-99.0 Mean Corpuscular HGB 30.1 pg 25.9-32.7 Mean Corpuscular HGB Conc 32.5 g/dL 30.8-34.3 Platelet Count 198 K/uL 155-360 Red Cell Distri Width %CV 14.8 % High 11.7-14.4 Mean Platelet Volume 9.0 fL 8.9-12.4 Basic Metabolic Panel 08/09/2010 Glucose 103 mg/dL 76-115 BUN 8 mg/dL 5-23 Creatinine 0.8 mg/dL 0.5-1.4 Glom Filtration Rate, Estimate >60 mL/min >60 If >60 mL/min >60 40 BUN/Creat 10.0 Sodium 144 mEq/L 136-145 Potassium 3.9 mEq/L 3.5-5.1 Chloride 101 mEq/L 98-107 Carbon Dioxide 27 mEq/L 21-32 Anion Gap 20 mEq/L High 8-16 Calcium 8.9 mg/dL 8.5-10.1 Urine Screen 03/25/2010 Urine Color YELLOW Yellow Urine Clarity CLEAR Clear Urine Glucose - Dipstick NEGATIVE mg/dL Negative Urine Bilirubin - Dipstick NEGATIVE Negative Urine Ketone NEGATIVE mg/dL Negative Urine Specific Harwood 1.010 1.010-1.030 Urine Blood NEGATIVE Negative Urine PH 5.5 Low 6.5-7.5 Urine Protein - Dipstick NEGATIVE mg/dL Negative Urine Urobilinogen - Dipstick 0.2 E.U./dL 0.2-1.0 Urine Nitrite - Dipstick NEGATIVE Negative Urine Leuk Esterase NEGATIVE Negative Laboratory test finding 03/25/2010 Act Partial Thrombo 33.7 seconds 23.4- 37.4 41 Time Protime 03/25/2010 Protime 13.7 seconds 11.7-15.1 Inr 1.0 0.8-1.2 42 CBC 03/25/2010 White Blood Count 6.9 K/uL 3.1-10.7 Red Blood Count 4.15 M/uL 3.90-5.40 Hemoglobin 12.3 gm/dL 11.6-15.8 Hematocrit 38.9 % 36.0-46.1 Mean Cell Volume 93.7 fl 80.9-99.0 Mean Corpuscular HGB 29.6 pg 25.9-32.7 Mean Corpuscular HGB Conc 31.6 g/dL 30.8-34.3 Platelet Count 223 K/uL 155-360 Red Cell Distri Width %CV 13.7 % 11.7-14.4 Mean Platelet Volume 9.2 fL 8.9-12.4 Basic Metabolic Panel 03/25/2010 Glucose 91 mg/dL 76-115 BUN 12 mg/dL 5-23 Creatinine 0.9 mg/dL 0.5-1.4 Glom Filtration Rate, Estimate >60 mL/min >60 If >60 mL/min >60 43 BUN/Creat 13.3 Sodium 137 mEq/L 136-145 Potassium 3.7 mEq/L 3.5-5.1 Chloride 100 mEq/L 98-107 Carbon Dioxide 28 mEq/L 21-32 Anion Gap 13 mEq/L 8-16 Calcium 9.5 mg/dL 8.5-10.1 Urine Screen 01/09/2009 Urine Color YELLOW Yellow 44 Urine Clarity CLEAR Clear 44 Urine Glucose - Dipstick NEGATIVE mg/dL Negative 44 Urine Bilirubin - Dipstick NEGATIVE Negative 44 Urine Ketone NEGATIVE mg/dL Negative 44 Urine Specific Harwood >=1.030 1.010-1.030 44 Urine Blood NEGATIVE Negative 44 Urine PH 5.0 Low 6.5-7.5 44 Urine Protein - Dipstick NEGATIVE mg/dL Negative 44 Urine Urobilinogen - Dipstick 0.2 E.U./dL 0.2-1.0 44 Urine Nitrite - Dipstick NEGATIVE Negative 44 Urine Leuk Esterase NEGATIVE Negative 44 Laboratory test finding 01/09/2009 Act Partial Thrombo 32.5 seconds 23.4- 37.4 44 Time Protime 01/09/2009 Protime 13.0 seconds 11.8-14.6 44 Inr 1.0 0.9-1.1 44, 45 CBC 01/09/2009 White Blood Count 7.0 K/uL 3.1-10.7 44 Red Blood Count 5.12 M/uL 3.90-5.40 44 Hemoglobin 13.1 gm/dL 11.6-15.8 44 Hematocrit 41.6 % 36.0-46.1 44 Mean Cell Volume 81.3 fl 80.9-99.0 44 Mean Corpuscular HGB 25.6 pg Low 25.9-32.7 44 Mean Corpuscular HGB Conc 31.5 g/dL 30.8-34.3 44 Platelet Count 288 K/uL 155-360 44 Red Cell Distri Width %CV 14.5 % High 11.7-14.4 44 Mean Platelet Volume 9.1 fL 8.9-12.4 44 Basic Metabolic Panel 01/09/2009 Glucose 98 mg/dL 76-115 44 BUN 9 mg/dL 5-23 44 Creatinine 0.9 mg/dL 0.5-1.4 44 Glom Filtration Rate, Estimate >60 mL/min >60 44 If >60 mL/min >60 44, 46 BUN/Creat 10.0 44 Sodium 140 mEq/L 136-145 44 Potassium 4.0 mEq/L 3.5-5.1 44 Chloride 101 mEq/L 98-107 44 Carbon Dioxide 27 mEq/L 21-32 44 Anion Gap 16 mEq/L 8-16 44 Calcium 9.4 mg/dL 8.5-10.1 44 1 LEFT KNEE EFFUSION 42429 2 NO ORGANISMS SEEN 3 NO GROWTH: FINAL REPORT 4 OTHER CELLS CONSIST OF 1 HISTIOCYTE AND 3 MESOTHELIAL CELLS 5 OTHER CELLS CONSIST OF 1 HISTIOCYTE AND 3 MESOTHELIAL CELLS Hematology Consultation Final Report Case# [id number] Final Diagnosis Specimen labeled synovial fluid, left knee, cytospin: -The specimen shows numerous lymphocytes and monocytes, some neutrophils, rare synovial cells, and abundant red blood cells. - The above findings could represent chronic inflammatory process or presence of blood in synovial fluid. Clinical correlation is suggested. GY 03/14/2018 Gross Description Synovial fluid LINDSAY SELLERS MD, Pathologist Reported 03/14/2018 at 9:34PM, Report electronically signed Performed at: [facility] [id number] [place] [address] 6 NO CRYSTALS SEEN 7 NO ORGANISMS SEEN 8 D62,Z47.1 9 Method: Sediplast Modified Westergren 10 LEFT KNEE OA 11 Note: Persistent reduction for 3 months or more in an eGFR <60 mL/min/1.73 m2 defines CKD. Patients with eGFR values >/=60 mL/min/1.73 m2 may also have CKD if evidence of persistent proteinuria is present. The original MDRD equation for estimated GFR is not valid for patients less than 18 years of age. Additional information may be found at www.kdoqi.org. 12 M17.12 13 NO METHICILLIN RESISTANT STAPHYLOCOCCUS AUREUS ISOLATED. 14 R19.7 15 The atypical pANCA pattern has been observed in a significant percentage of patients with ulcerative colitis, primary sclerosing cholangitis and autoimmune hepatitis. ASCA+/PANCA- Suggestive of Crohn's disease ASCA-/PANCA+ Suggestive of Ulcerative colitis 16 Negative <20.0 Equivocal 20.1 - 24.9 Positive >or=25.0 17 Negative <20.0 Equivocal 20.1 - 24.9 Positive >or=25.0 IgA and IgG antibody testing for S. cerevisiae is useful adjunct testing for differentiating Crohn's disease and ulcerative colitis. Close to 80% of Crohn's disease patients are positive for either IgA or IgG. In ulcerative colitis, less than 15% are positive for IgG and less than 2% are positive for IgA. Fewer than 5% are positive for either IgG or IgA antibody, and no healthy controls had antibody for both. Performed at: - [facility] [id number] [employer] Specialist: Ryan Caballero MD, Phone: [phone] 18 Concentration Interpretation Follow-Up <16 - 50 ug/g Normal None >50 -120 ug/g Borderline Re-evaluate in 4-6 weeks >120 ug/g Abnormal Repeat as clinically indicated 19 INFCE Result Units: ug Elast./g Severe Pancreatic Insufficiency: <100 Moderate Pancreatic Insufficiency: 100 - 200 Normal: >200 Performed at: [facility] [id number] [employer] Specialist: Ryan Caballero MD, Phone: [phone] 20 Method: Sediplast Modified Westergren 21 OPERATION/PROCEDURE Colonoscopy DIAGNOSIS: PART 1: "COLON, CECUM, BIOPSY": - LARGE INTESTINAL MUCOSA WITH FOCAL SUPERFICIAL ACUTE COLITIS WITH FOCAL ARCHITECTURAL DISORDER COMPATIBLE WITH REPAIR; SEE COMMENT. PART 2: "COLON, TRANSVERSE, RANDOM BIOPSY": - MILD MICROSCOPIC/LYMPHOCYTIC COLITIS; SEE COMMENT. PART 3: "COLON, SIGMOID, BIOPSY": - MILD MICROSCOPIC/LYMPHOCYTIC COLITIS; SEE COMMENT. PART 4: "SMALL BOWEL, DUODENUM, BIOPSY": - SMALL BOWEL MUCOSA WITH NORMAL VILLOUS ARCHITECTURE AND NO SIGNIFICANT PATHOLOGIC ABNORMALITY. DS/clf 1030 INTERPRETATION COMMENT Specimens from #2 and #3 demonstrate identical findings with well preserved crypts and increased superficial epithelial lymphocyte infiltration with epithelial damage and loss of mucin. These findings are compatible with mild microscopic/lymphocytic colitis. Similar findings are seen in #1, although there is also very focal acute superficial inflammation and some background architectural disorder suggestive of a resolving more destructing prior insult. Correlation with clinical and colonoscopic findings is suggested. GROSS The specimen is received in formalin in four properly labeled containers with the patient's name and accession number. Part one is designated, "CECAL BIOPSY". The specimen consists of a single piece of sotelo, soft rubbery tissue measuring 0.4 x 0.3 x 0.2 cm. Submitted entirely, one cassette. Part two is designated, "TRANSVERSE COLON, RANDOM BIOPSY". The specimen consists of a single piece of sotelo, soft rubbery tissue measuring 0.5 x 0.3 x 0.2 cm. Submitted GROSS (Continued) entirely, one cassette. Part three is designated, "SIGMOID COLON, RANDOM BIOPSY". The specimen consists of a single piece of sotelo rubbery tissue measuring 0.4 x 0.3 x 0.2 cm. Submitted entirely, one cassette. Part four is designated, "DUODENAL BIOPSY". The specimen consists of a single piece of sotelo, soft rubbery tissue measuring 0.4 x 0.4 x 0.2 cm. Submitted entirely, one cassette. CC/clf PRE OPERATIVE DIAGNOSIS Celiac disease, abdominal pain, diarrhea. REVIEW CODE CODE: I Signed Electronically signed LIS CANNON MD 1200 22 INFCE Result Units: nmol/g dry wt. 23 INFCE Result Units: nmol/g dry wt. The performance characteristics of the listed assay was validated by [facility]. The [place] FDA has not approved or cleared this test. The results of these assay can be used for clinical diagnosis without FDA approval. [facility] is a CLIA certified, CAP accredited laboratory for performing high complexity assays such as this one. Performed at: [facility] [address] [place] [address], [place], [place] [id number] [employer] Specialist: Adriel Bailon PhD, Phone: [phone] 24 NEGATIVE FOR C. DIFFICILE TOXIN A/B. CORRELATE RESULTS WITH CLINICAL CONDITION. 25 Negative 0 - 3 Weak Positive 4 - 10 Positive >10 Tissue Transglutaminase (tTG) has been identified as the endomysial antigen. Studies have demonstr- ated that endomysial IgA antibodies have over 99% specificity for gluten sensitive enteropathy. Performed at: [address] [id number] [employer] Specialist: Tahira Toure MD, Phone: [phone] 26 Negative 0 - 19 Weak Positive 20 - 30 Moderate to Strong Positive >30 27 Negative 0 - 19 Weak Positive 20 - 30 Moderate to Strong Positive >30 28 Negative 0 - 3 Weak Positive 4 - 10 Positive >10 Tissue Transglutaminase (tTG) has been identified as the endomysial antigen. Studies have demonstr- ated that endomysial IgA antibodies have over 99% specificity for gluten sensitive enteropathy. Performed at: [address] [id number] [employer] Specialist: Tahira Toure MD, Phone: [phone] 29 Negative 0 - 19 Weak Positive 20 - 30 Moderate to Strong Positive >30 30 Negative 0 - 19 Weak Positive 20 - 30 Moderate to Strong Positive >30 31 Negative 0 - 3 Weak Positive 4 - 10 Positive >10 Tissue Transglutaminase (tTG) has been identified as the endomysial antigen. Studies have demonstr- ated that endomysial IgA antibodies have over 99% specificity for gluten sensitive enteropathy. Performed at: [address] [id number] [employer] Specialist: Tahira Toure MD, Phone: [phone] 32 OPERATION/PROCEDURE Gastroscopy, colonoscopy. DIAGNOSIS: "RECTUM, POLYPECTOMY": HYPERPLASTIC POLYPS, WITH HEALING CHANGES. Carli GROSS The specimen is received in formalin labeled, "RECTAL POLYPS" are four pieces of sotelo, soft tissue measuring up to 0.3 cm. in greatest dimension. Submitted in toto in one block. QUIANA/adair MICROSCOPIC Sections show congested and inflamed colonic mucosa lined by an increased number of goblet cells with smooth muscle ingrowth. The glands have a serrated, saw tooth appearance. The nuclei are bland, and basal. PRE OPERATIVE DIAGNOSIS Epigastric and left sided abdominal pain. REVIEW CODE CODE: I Signed ARIEL STUART MD 1314 33 OPERATION/PROCEDURE Removal hardware, 2 wires, left 5th metacarpal DIAGNOSIS: "LEFT HAND, REMOVAL OF HARDWARE": SINGLE WIRE FRAGMENT, GROSSLY RECOGNIZED. WS/chriss 1427 INTERPRETATION COMMENT Note, only one wire was seen in the container. GROSS The specimen is received in a single container additionally labeled " HARDWARE LEFT HAND". This contains a single largely straight but slightly bent at one end piece of metal wire measuring 2.0 cm. in length with a diameter of approximately 1.0 mm. This is for gross only identification. WS/chriss PRE OPERATIVE DIAGNOSIS Fracture left wrist REVIEW CODE CODE: I Signed RYAN BREEN MD 08/13/10 0824 34 GRAM STAIN ! NO ORGANISMS SEEN 35 NO GROWTH: FINAL REPORT 36 GRAM STAIN ! NO ORGANISMS SEEN 37 Organism 1 ! NO GROWTH 38 Is patient on heparin protocol? N Is patient on anticoagulants? Unknown QUERY: @EMR Pat ID: QUERY: @EMR Req #: QUERY: Anticoagulant Therapy? QUERY: Date of Last Dose: QUERY: Time of Last Dose: 39 THERAPEUTIC INR RANGE: 2.0 - 3.0 DVT, Pulmonary embolus, prophylaxis against venous thrombosis or systemic embolization in high risk patients. 2.5 - 3.5 Mechanical heart valves 40 Note: Persistent reduction for 3 months or more in an eGFR <60 mL/min/1.73 m2 defines CKD. Patients with eGFR values >/=60 mL/min/1.73 m2 may also have CKD if evidence of persistent proteinuria is present. The original MDRD equation for estimated GFR is not valid for patients less than 18 years of age. Additional information may be found at www.kdoqi.org. 41 Is patient on heparin protocol? N Is patient on anticoagulants? Unknown Specimen Comments: N QUERY: @EMR Pat ID: QUERY: @EMR Req #: QUERY: Anticoagulant Therapy? QUERY: Date of Last Dose: QUERY: Time of Last Dose: 42 THERAPEUTIC INR RANGE: 2.0 - 3.0 DVT, Pulmonary embolus, prophylaxis against venous thrombosis or systemic embolization in high risk patients. 2.5 - 3.5 Mechanical heart valves 43 Note: Persistent reduction for 3 months or more in an eGFR <60 mL/min/1.73 m2 defines CKD. Patients with eGFR values >/=60 mL/min/1.73 m2 may also have CKD if evidence of persistent proteinuria is present. The original MDRD equation for estimated GFR is not valid for patients less than 18 years of age. Additional information may be found at www.kdoqi.org. 44 Specimen: [id number] - TESTS: CBC, PT, PTT IS PATIENT ON HEPARIN PROTOCOL ? N IS PATIENT ON ANTICOAGULANTS? UNKNOWN TEST: CBC TEST: PT QUERY: Anticoagulant Therapy? QUERY: Date of Last Dose: QUERY: Time of Last Dose: TEST: PTT QUERY: Anticoagulant Therapy? QUERY: Date of Last Dose: QUERY: Time of Last Dose: 45 THERAPEUTIC INR RANGE: 2.0 - 3.0 DVT, Pulmonary embolus, prophylaxis against venous thrombosis or systemic embolization in high risk patients. 2.5 - 3.5 Mechanical heart valves 46 Note: Persistent reduction for 3 months or more in an eGFR <60 mL/min/1.73 m2 defines CKD. Patients with eGFR values >/=60 mL/min/1.73 m2 may also have CKD if evidence of persistent proteinuria is present. The original MDRD equation for estimated GFR is not valid for patients less than 18 years of age. Additional information may be found at www.kdoqi.org. Procedures Date CPT Code Description Status Comment 03/09/201893307 Asp./Injection major joint Completed 01/16/2018 21929 Pulse Oximetry Completed 12/25/2017 84323 Radiology, Knee 3 Views Completed 12/11/2017 75358 Total Knee Arthroplasty Completed medial&lateral compartments w/wo becker res 12/11/2017 82624 Total Knee Arthroplasty Completed medial&lateral compartments w/wo becker res 10/04/201723145 Asp./Injection major joint Completed 10/03/2017 91067 Radiology, Knee 3 Views Completed 10/03/201774428 Asp./Injection major joint Completed 06/26/2017 39344 Bronchospasm Provocation Completed Evaluation Multi Spirometric Determinati 06/26/2017 60654 Spirometry Completed 05/24/2017 02704 EKG Interpretation And Report Completed Only 04/17/2017 Colonoscopy Completed Document: 04/17/17 - Op Report - Colonoscopy Document: 04/17/17 - COlonoscopy Pictures Document: 04/17/17 - Pathology Final Report 04/17/2017 15017 Colonoscopy With Biopsy Completed 12/27/2016 00292 Radiology, Hand: Minimum Completed Three Views 12/27/2016 98562 Radiology, Hand: Minimum Completed Three Views 09/20/2016 13603 Radiologic Exam Hip Completed Unilateral With Pelvis 2-3 Views 09/20/201676037 Asp./Injection major joint Completed 08/16/2016 36816 Myocardial Imaging Completed Tomographic Multiple Study AT Rest Or Stress 08/16/2016 85470 Stress Test Interpre And Completed Report Only 08/16/2016 35045 Stress Test Physician Super Completed Only 06/25/2015 Colonoscopy Completed Document: 06/25/15 - Operative Report Colonoscopy Document: 06/25/15 - Images Colonoscopy 06/25/2015 31792 Colonoscopy With Biopsy Completed 06/25/2015 53337 EGD With Biopsy Completed 09/19/2014 60518 X-Ray Knee Complete Completed W/Obliques & Tunnel And/Or Standing Views 03/10/2014 19829 Radiology, Knee 3 Views Completed 03/10/201471022 Asp./Injection major joint Completed 10/29/201219586 Asp./Injection major joint Completed 10/23/201219362 Asp./Injection major joint Completed 10/15/2012 Asp./Injection major joint Completed 09/26/2012 68550 Radiology, Knee 3 Views Completed 06/13/201291786 Asp./Injection major joint Completed 03/21/201270442 Asp./Injection major joint Completed 03/02/201216016 Asp./Injection major joint Completed 03/02/2012 78442 Radiology, Knee 3 Views Completed 02/28/2012 58203 EGD Completed 02/28/2012 84233 Colonoscopy With Biopsy Completed Forceps 11/10/201109349 Asp./Injection major joint Completed 02/07/2011 64981 Radiology, Wrist Complete Completed 02/04/2011 26566 Echocardiogram Complete Completed 01/06/2011 24090 Radiology, Wrist Complete Completed 01/04/2011 24031 Radiology, Foot, Complete-3 Completed Views 12/27/2010 21182 Radiology, Wrist Complete Completed 12/20/2010 64594 Fracture distal radial-closed Completed 09/02/2010 45431 Radiology, Hand: Minimum Completed Three Views 08/19/2010 57429 Radiology, Hand: Minimum Completed Three Views 08/11/2010 06937 Anesthesia, Lower Arm Surgery Completed Open/Surg Arthroscopic/Endoscopic 08/11/2010 18488 Removal of implant Completed superficial buried wire, pin or norma 06/07/2010 67525 Radiology, Hand: Minimum Completed Three Views 05/07/2010 68242 Radiology, Hand: Minimum Completed Three Views 04/19/2010 63996 Radiology, Hand: Minimum Completed Three Views 03/31/2010 52915 FX Metacarpal open single Completed w/internal fixation 03/31/2010 26285 Anesthesia, Lower Arm Surgery Completed Open/Surg Arthroscopic/Endoscopic 03/26/2010 32865 EKG-Tracing And Report Completed 03/25/2010 41769 EKG Interpretation And Report Completed Only 03/25/2010 31147 Radiology, Hand: Minimum Completed Three Views 03/04/2010 33817 Radiology, Hand: Minimum Completed Three Views 02/25/2010 64814 Radiology, Hand: Minimum Completed Three Views 02/11/2010 91334 Radiology, Hand: Minimum Completed Three Views 01/28/2010 16825 Radiology, Hand: Minimum Completed Three Views 01/21/2010 76936 FX Metacarpal closed single Completed w/o manipulation 04/27/2009 Asp./Injection major joint Completed 03/09/2009 Asp./Injection major joint Completed 01/13/2009 35637 Arthroscopy w/meniscectomy Completed including meniscal shaving 01/13/2009 92813 Chrondroplasty Completed debridement/shaving of articular cartilage 01/09/2009 59122 EKG Interpretation And Report Completed Only 01/01/2008 43021 Radiology, L-S Spine 2 Or 3 Completed Views 11/26/2007 34579 Asp/Injection small Completed joint/bursa (ie-fingers,toes) 11/01/2007 Asp./Injection major joint Completed 10/25/2007 Asp./Injection major joint Completed 10/11/2007 Asp./Injection major joint Completed 10/04/2007 Asp./Injection major joint Completed 09/27/2007 Asp./Injection major joint Completed 09/04/2007 Asp./Injection major joint Completed 05/30/2007 56009 Colonoscopy Completed 05/30/2007 25845 EGD With Biopsy Completed 05/30/2007 Colonoscopy Completed Document: 05/30/07 - Operative Report 05/01/2007 Asp./Injection major joint Completed 02/28/2007 70252 Arthroscopy w/meniscectomy Completed including meniscal shaving 02/28/2007 56298 Chrondroplasty Completed debridement/shaving of articular cartilage 11/27/2006 Asp./Injection major joint Completed 07/28/2005 28877 FX Metatarsal-Closed W/O Completed Encounters Type Date Location Provider CPT E/M Dx Office Visit 01/16/2018 2:45p [place] [address] J45.20 J30.89 D86.0 F17.210 Z71.6 Office Visit 11/09/2017 10:30a Orthopaedic Office Ricardo Oropeza M.D. 93079 M17.12 Office Visit 10/12/2017 3:[place] [address] J45.20 J30.89 Office Visit 10/03/2017 11:00a Orthopaedic Office Ricardo Oropeza M.D. 04288 M17.12 Office Visit 06/07/2017 3:00[place] [address] J45.20 D86.89 B38.2 E66.01 J02.9 F17.210 Z71.6 Z23 Office Visit 04/27/2017 2:00[place] [address] R19.7 Office Visit 04/06/2017 1:00[place] [address] R19.7 R10.9 Office Visit 03/16/2017 1:45[place] [address] R19.7 K52.832 Office Visit 12/27/2016 9:45a Orthopaedic Office Daysi Mendoza, 95229 M79.642 RPAC Office Visit 09/20/2016 8:45a Orthopaedic Office Ricardo Oropeza M.D. 02983 M25.552 M70.62 Office Visit 07/23/2015 2:45p Surgical Office Giovani Murry, 17473 K52.9 M.DJaime Office Visit 07/01/2015 2:45p Surgical Office Giovani Murry 54634 K52.9 MJaimeDJaime M05.40 K57.90 Office Visit 06/03/2015 2:00p Surgical Office Giovani Murry 80934 R10.84 Radha Trujillo Office Visit 05/14/2015 9:30a Surgical Office Giovani Murry 40695 K90.0 Radha Trujillo Office Visit 09/30/2014 10:57a [place] [address] 729.92 Office Visit 09/30/2014 11:01a [facility] Tri Scruggs M.D. [address] [facility] 285.9 Office Visit 09/19/2014 11:00a Orthopaedic Office Ricardo Oropeza M.D. 11735 714.0 715.16 Office Visit 09/08/2014 9:45a Orthopaedic Office Daysi Mendoza, 14597 714.0 RPAC 715.16 Office Visit 06/13/2014 9:15a [place], [address] 714.0 FACS 715.16 Office Visit 06/05/2014 9:45a [place], [address] 714.0 FACS 715.16 717.40 Office Visit 04/21/2014 9:45a [place], [address] 714.0 FACS Office Visit 03/10/2014 8:45a [place], [address] 715.16 FACS 715.16 714.0 714.0 719.46 719.46 Office Visit 2013 10:30a [place], [address] 715.16 FACS Office Visit 01/01/2013 1:50p [place] [address] 715.16 Office Visit 12/04/2012 2:40p [place] [address] 715.16 Office Visit 10/15/2012 3:10p [place] [address] 715.16 Office Visit 10/03/2012 1:50p [place] [address] 715.16 Office Visit 09/26/2012 2:30p [place] [address] 715.16 717.40 Office Visit 07/25/2012 2:00p [place] [address] 715.16 726.61 Office Visit 06/27/2012 8:50a [place] [address] 715.16 726.61 Office Visit 06/13/2012 8:50a [place] [address] 715.16 726.61 Office Visit 04/11/2012 2:40p [place] [address] 715.16 726.61 Office Visit 03/22/2012 3:00p Surgical Office Giovani Muryr 56835 789.07 Radha Trujillo Office Visit 03/21/2012 2:00p [place] [address] 726.61 715.16 Office Visit 03/08/2012 3:00p Surgical Office Giovani Murry 13928 V67.09 HRadha Sandoval 789.07 305.1 Office Visit 03/02/2012 10:40a [place] [address] 726.61 Office Visit 02/16/2012 3:15p Surgical Office Jeanmarie Chapitoraviyaneli 65297 789.07 HRadha Sandoval Office Visit 12/26/2011 11:30a Surgical Office Jeanmarie Giovani 69177 789.07 HRadha Sandoval Office Visit 11/10/2011 2:10p [place] [address] 715.16 726.61 Office Visit 09/21/2011 9:00a Surgical Office MercedniraliGiovani 70342 789.07 HRadha Sandoval 789.00 Office Visit 01/04/2011 3:00p [place] [address] 719.47 E016.9 Office Visit 11/08/2010 2:15p Orthopaedic Office Rock Boyd 30250 V54.09 MD 815.02 Office Visit 10/04/2010 2:45p Orthopaedic Office Megha Trent, N.P. 39596 V67.4 815.02 V67.09 Office Visit 09/02/2010 2:15p Orthopaedic Office Megha Trent, N.P. 36408 V54.09 Office Visit 08/13/2010 11:30a Orthopaedic Office Rock Boyd 74790 V67.4 V67.09 Office Visit 08/09/2010 8:30a [place] [address] V67.4 V54.09 Office Visit 03/26/2010 2:20p [place] [address] 401.1 272.4 305.1 V72.81 Office Visit 03/04/2010 1:45p [facility] [place] [address] 733.82 815.01 Office Visit 04/27/2009 1:15p [place] [address] V67.09 719.46 Office Visit 12/22/2008 11:30a [place] [address] 715.16 836.0 Office Visit 12/04/2008 10:15a [place] [address] 719.46 Office Visit 07/10/2008 11:00a [place] [address] 715.16 Office Visit 05/02/2008 11:00a [place] [address] 715.16 Office Visit 02/13/2008 11:00a [place] [address] 715.16 836.0 836.1 Office Visit 01/01/2008 2:00p [place] [address] 719.46 724.2 Office Visit 11/26/2007 11:15a [place] [address] 836.0 836.1 715.16 Office Visit 09/04/2007 2:00p [place] [address] 715.16 836.0 Office Visit 07/06/2007 12:15p [place] [address] 836.0 715.16 Office Visit 06/28/2007 10:20[place] [address] 530.81 787.20 Office Visit 05/17/2007 1:15p [place] [address] 789.00 787.20 Office Visit 02/09/2007 10:30a [place] [address] 836.0 836.1 715.16 Office Visit 01/15/2007 10:15a [place] [address] 715.16 719.46 Office Visit 11/27/2006 12:15p [place] [address] 715.16 Plan of Care Future Appointment(s):06/20/2018 1:00 pm - Zhang Blackwell MD at [facility]607/23/2018 1:30 pm - Tay Walker MD at [facility]03/24/2018 - Zhang Blackwell, MDM25.462 Effusion, left kneeNew Xrays:RMP, Knee, LT, Ap, lat & sunrise (3 view)RMP, Knee, LT, Standing Ap & lateralFollow up:Follow up in 3 months time with pre-clinic x-rays of left totally
--- OUTSIDE RECORDS SUMMARY | 2018-03-21 14:36 | XMS REPORT | Continuity of Care Document ---
:1960 Author Organization [facility] Address [address], [place] [id number] Phone Care Team Providers Name Role Phone Pilar Romo MD Unavailable Unavailable Allergies, Adverse Reactions, Alerts Substance Reaction Status amoxicillin Active simvastatin Active cephalexin Active Medications Medication Instructions Dosage Effective Status Comments Dates (start - stop) Simponi ARIA 12.5 infuse 235 2.35 MG/KG - Active mg/mL intravenous (2.35MG/KG) by solution intravenous route every 8 weeks over METHOTREXATE 2.5 TAKE 8 TABLETS BY 20 MG - Active MG TABLET MOUTH ONCE WEEKLY folic acid 1 mg TAKE ONE TABLET BY 1 MG - Active tablet MOUTH EVERY DAY lamotrigine 150 mg take 1 tablet by 150 MG - Active tablet oral route every day Aspirin Low Dose take 1 tablet by 81 MG - Active 81 mg oral route every tablet,delayed day release montelukast 10 mg take 1 tablet by 10 MG - Active tablet oral route every day in the evening baclofen 10 mg take 1 tablet by 10 MG - Active tablet oral route 3 times every day Embeda 20 mg-0.8 take 1 capsule by 1.00 capsule - Active mg capsule, extend oral route every release, oral only 24 hours as needed cetirizine 10 mg take 1 tablet by 10 MG - Active tablet oral route every day meclizine 25 mg take 1 tablet by 25 MG - Active tablet oral route 3 times every day as needed as needed Apriso 0.375 gram take 4 capsule by 1500 MG - Active capsule,extended oral route every release day in the morning loperamide 2 mg take 1 tablet by 2 MG - Active tablet oral route after 1st loose stool and 1 tablet (2 mg) after each next bowel movement; do not exceed 16 mg in 24hrs quetiapine 25 mg take 1 tablet by - Active tablet oral route every night duloxetine 60 mg take 1 capsule by 60 MG - Active capsule,delayed oral route every release day gabapentin 800 mg take 1 tablet 800 MG - Active tablet (800MG) by oral route 4 times every day Savella 25 mg take 1 Tablet 25 MG - Active tablet (25MG) by oral route 2 times every day Acidophilus - Active capsule Vesicare 5 mg take 1 tablet by 5 MG - Active tablet oral route every day hydrocodone 10 take 1 - 2 Tablet 1-2 Tablet - Active mg-acetaminophen by oral route 325 mg tablet every 4 hours as needed for pain promethazine 25 mg 1/2 tablet po - Active tablet every day prn as needed albuterol 90 as directed - Active mcg/Actuation Aerosol Inhaler pravastatin 40 mg take 1 tablet 40 MG - Active Tab (40MG) by oral route every day clonazepam 0.5 mg take 1 tablet 0.5 MG - Active Tab (0.5MG) by oral route 3 times every day Nexium 40 mg Cap take 1 capsule 40 MG - Active (40MG) by oral route every day lisinopril 10 mg take 1 tablet 10 MG - Active Tab (10MG) by oral route every day Remicade 100 mg infuse 1000 1000 Milligram - No Longer intravenous Milligram by Active solution intravenous route every 4 weeks over Problems Condition Effective Dates Clinical Status Comments (start - stop) Rheumatoid arthritis w/o rheumatoid factor, multiple sites Rheumatoid arthritis w/o rheumatoid factor, multiple sites Other intermediate (current) drug therapy Sarcoidosis of lung Polyarthritis, unspecified Other intermediate (current) drug therapy Rheumatoid arthritis w/o rheumatoid factor of multiple sites Other intermediate drug therapy Sarcoidosis of lung Polyarthritis Rheumatoid arthritis w/o rheumatoid factor of multiple sites Rheumatoid arthritis w/o rheumatoid factor of multiple sites Rheumatoid arthritis w/o rheumatoid factor of multiple sites Rheumatoid arthritis w/o rheumatoid factor of multiple sites Rheumatoid arthritis w/o rheumatoid factor of multiple sites Sarcoidosis of lung Other intermediate drug therapy Rheumatoid arthritis w/o rheumatoid factor of multiple sites Sarcoidosis of lung Other intermediate drug therapy Diarrhea Rheumatoid arthritis w/o rheumatoid factor of multiple sites Rheumatoid arthritis w/o rheumatoid factor of multiple sites Other rat exterminator drug therapy Sarcoidosis of lung Rheumatoid arthritis w/o rheumatoid factor of multiple sites Sarcoidosis of lung Other rat exterminator drug therapy Polyarthritis Rheumatoid arthritis w/o rheumatoid factor of multiple sites Sarcoidosis of lung Other intermediate drug therapy Encounter for screening for respiratory tuberculosis Rheumatoid arthritis w/o rheumatoid factor of multiple sites Sarcoidosis of lung Other intermediate drug therapy Rheumatoid arthritis w/o rheumatoid factor of multiple sites Rheumatoid arthritis w/o rheumatoid factor of multiple sites Other intermediate drug therapy Sarcoidosis of lung Rheumatoid arthritis w/o rheumatoid factor of multiple sites Sarcoidosis of lung Other intermediate drug therapy Polyarthritis Diarrhea Rheumatoid arthritis w/o rheumatoid factor of multiple sites Other rat exterminator drug therapy Sarcoidosis of lung Rheumatoid arthritis w/o rheumatoid factor of multiple sites Sarcoidosis of lung Polyarthritis Other intermediate drug therapy Rheumatoid arthritis w/o rheumatoid factor of multiple sites Other intermediate drug therapy Sarcoidosis of lung Rheumatoid arthritis w/o rheumatoid factor of multiple sites Other rat exterminator drug therapy Pulmonary sarcoidosis Rheumatoid arthritis w/o rheumatoid factor of multiple sites Other rat exterminator drug therapy Pulmonary sarcoidosis Rheumatoid arthritis w/o rheumatoid factor of multiple sites Polyarthritis Other rat exterminator drug therapy Sarcoidosis - Active Mapped from [facility] Chronic Conditions table on 08/05/2014 by the ICD9 to SNOMED Bulk Mapping Utility. The mapped diagnosis code was Sarcoidosis, 135, added by Chacho De Leon MD, with responsible provider Chacho De Leon MD. Onset date 07/10/2013; last addressed on 04/22/2014. Rheumatoid arthritis - Active Mapped from [facility] Chronic Conditions table on 08/05/2014 by the ICD9 to SNOMED Bulk Mapping Utility. The mapped diagnosis code was Rheumatoid Arthritis, 714.0, added by Susie Alonzo, with responsible provider Susie Griffith PA-C. Onset date 03/05/2013; last addressed on 04/22/2014. Pure hypercholesterolemia - Active Mapped from [facility] Chronic Conditions table on 08/05/2014 by the ICD9 to SNOMED Bulk Mapping Utility. The mapped diagnosis code was Pure hypercholesterolemia , 272.0, added by Brianne Loera, with responsible provider Chacho De Leon MD. Onset date 03/22/2011; last addressed on 07/06/2011. Migraine - Active Mapped from [facility] Chronic Conditions table on 08/05/2014 by the ICD9 to SNOMED Bulk Mapping Utility. The mapped diagnosis code was Migraine, unspecified without mention of intractab, 346.90, added by Brianne Loera, with responsible provider Chacho De Leon MD. Onset date 03/22/2011; last addressed on 07/06/2011. Depressive disorder - Active Mapped from [facility] Chronic Conditions table on 08/05/2014 by the ICD9 to SNOMED Bulk Mapping Utility. The mapped diagnosis code was Depressive disorder, not elsewhere classified, 311, added by Brianne Loera, with responsible provider Chacho De Leon MD. Onset date 03/22/2011; last addressed on 07/06/2011. Anxiety state - Active Mapped from [facility] Chronic Conditions table on 08/05/2014 by the ICD9 to SNOMED Bulk Mapping Utility. The mapped diagnosis code was Anxiety state, unspecified, 300.00, added by Brianne Loera, with responsible provider Chacho De Leon MD. Onset date 03/22/2011; last addressed on 07/06/2011. Anemia - Active Mapped from [facility] Chronic Conditions table on 08/05/2014 by the ICD9 to SNOMED Bulk Mapping Utility. The mapped diagnosis code was Anemia, unspecified, 285.9, added by Brianne Loera, with responsible provider Chacho De Leon MD. Onset date 03/22/2011; last addressed on 07/06/2011. Bipolar disorder - Active Mapped from [facility] Chronic Conditions table on 08/05/2014 by the ICD9 to SNOMED Bulk Mapping Utility. The mapped diagnosis code was Bipolar disorder, unspecified, 296.80, added by Brianne Loera, with responsible provider Chacho De Leon MD. Onset date 03/22/2011; last addressed on 07/06/2011. Chronic ulcer of skin - Active Mapped from [facility] Chronic Conditions table on 08/05/2014 by the ICD9 to SNOMED Bulk Mapping Utility. The mapped diagnosis code was Chronic ulcer of unspecified site, 707.9, added by Brianne Loera, with responsible provider Chacho De Leon MD. Onset date 03/22/2011. Degenerative joint disease - Active Mapped from [facility] involving multiple joints Chronic Conditions table on 08/05/2014 by the ICD9 to SNOMED Bulk Mapping Utility. The mapped diagnosis code was Osteoarthrosis, generalized, involving multiple si, 715.09, added by Brianne Loera, with responsible provider Chacho De Leon MD. Onset date 03/22/2011. Asthma - Active Mapped from [facility] Chronic Conditions table on 08/06/2014 by the ICD9 to SNOMED Bulk Mapping Utility. The mapped diagnosis code was Asthma, 493, added by Brianne Loera, with responsible provider Chacho De Leon MD. Onset date 03/22/2011; last addressed on 07/06/2011. Fibromyositis - Active Mapped from [facility] Chronic Conditions table on 09/19/2014 by the ICD9 to SNOMED Bulk Mapping Utility. The mapped diagnosis code was Myalgia and myositis, unspecified, 729.1, added by Brianne Loera, with responsible provider Chacho De Leon MD. Onset date 03/22/2011; last addressed on 05/15/2013. Gastro-esophageal reflux - Active Mapped from [facility] disease with esophagitis Chronic Conditions table on 08/05/2014 by the ICD9 to SNOMED Bulk Mapping Utility. The mapped diagnosis code was Reflux esophagitis, 530.11, added by Brianne Loera, with responsible provider Chacho De Leon MD. Onset date 03/22/2011. Rheumatoid factor negative - Active Procedures Procedure Date CHEMO, IV INFUSION, 1 HR THER/PROPH/DIAG INJ, IV PUSH Simponi Aria 1 mg Normal saline solution infus Methylprednisolone injection Results Test Name Date and Time Measure Units Reference Range Abnormal Flag Status Comments No information Advance Directives Directive Yes / No Effective Date File Name No information Encounters Encounter Practice Location Reason(s) Diagnoses Date Provider Providers Description For Visit Copied on Encounter Arthritis Arthritis Rheumatoid Demetrius HARDIN [facility] arthritis w/o Pilar. 1808 Provider: Aditi Pennington rheumatoid 8 [facility] Hayley [facility], [address] [facility], [place], [facility], [facility] multiple [place], [address] [facility], [place], sites [place], [place], [place], [id number], [place], [address]. [place]. tel:[phone], tel:[phone] [place] [address] tel:[phone] Arthritis Arthritis Rheumatoid [facility] arthritis w/o PA-C August. Provider: Aditi Pennington rheumatoid 8 [address] [facility], [facility] [facility] factor, Godwin HARDIN, [address] [facility] [place], sitesOther [place], [address], [place], [place], [place], [place], (current) [id number], [place], [address]. [id number], drug [place]. tel:[phone] [place] therapySarcoi tel:[phone] tel:[phone] [phone] ring [phone] lungPolyarthr Provider: Hayley vallejo, [address], [place], [address]. tel:[phone] Arthritis Arthritis Other long Nov- [facility] term 7 PA-C August. Aditi Pennington (current) 8 5794 PLLC, 5[address] PLLC drug therapy [facility], [place], [place], [place], [place], [id number], [id number], [place]. [place] tel:[phone] tel:[phone] Arthritis Arthritis Rheumatoid [facility] arthritis w/o PA-C August. Provider: Aditi trevizo 8 [address] [facility], [address] [facility] factor of Godwin HARDIN, [address] [facility], [address] [place], sitesOther [place], [address], [place], [place], [place], [place] [id number], [place], [address]. [id number], therapySarcoi [place]. tel:[phone] [place] dosis of tel:[phone] tel:[phone] lungPolyarthr [phone] ring [id number] itis Provider: Hayley REYES, [address], [place], [address]. tel:[phone] Arthritis Arthritis [facility] 8 CAROL August. [facility] 8 [facility] [facility], 5[address] PLLC [facility], [place], [place], [place], [place], [place], [id number], [id number], [place]. [place] tel:[phone] tel:[phone] Arthritis Arthritis Rheumatoid [facility] arthritis w/o 1 MD Flor. Provider: Aditi Pennington rheumatoid 8 5794 [facility], 5[address] [facility] factor of [facility], [facility], [place] [address], [place], [facility] [place], [place], [place], [place], [address]. [place], [id number], tel:[phone], [place]. [address] [place] tel:[phone] tel:[phone] Arthritis Arthritis Rheumatoid [facility] arthritis w/o MD Flor. Provider: Aditi trevizo 8 5794 [facility], 5[address] PLLC factor of [facility], [facility], [place] [address], [place], [facility] [place], [place], [place], [place], [address]. [place], [id number], tel:[phone], [place]. [id number] [place] tel:[phone] tel:[phone] Arthritis Arthritis Rheumatoid [facility] arthritis w/o 0 MD Flor. Provider: Aditi Pennington rheumatoid 8 5794 [facility], 5[address] PLLC factor of [facility], [facility], [place] [address], [place], [facility] [place], [place], [place], [place], [address]. [place], [id number], tel:[phone], [place]. [address] [place] tel:[phone] tel:[phone] Arthritis Arthritis Rheumatoid [facility] arthritis w/o MD Flor. Provider: Aditi Pennington rheumatoid 8 5794 [facility], 5[address] PLLC factor of Godwin REYES, [facility], [address], [place], [facility] [place], [place], [place], [place], [address]. [place], [id number], tel:[phone], [place]. [address] [place] tel:[phone] tel:[phone] Arthritis Arthritis Rheumatoid [facility] arthritis w/o PA-C August. Provider: Aditi Pennington rheumatoid 8 [address] [facility], 5[address] PLLC factor of Godwin HARDIN, [address] [place] [address], [address] [facility], [address], [place], [place], [place], [place], lungOther [id number], [place], [address]. [id number], intermediate [place]. tel:[phone] [place] drug therapy tel:[phone] tel:[phone] ring [phone] Provider: Hayley REYES, Box [facility], [place], [address]. tel:[phone] Arthritis Arthritis Rheumatoid [facility] arthritis w/o PA-C August. Provider: Aditi Pennington rheumatoid 7 [address] [facility], 5[address] PLLC factor of Godwin HARDIN, [address] [facility], [address] [facility], [address], [place], [place], [place], [place], lungOther [id number], [place], [address]. [id number], intermediate [place]. tel:[phone] [place] drug tel:[phone] tel:[phone] therapyDiarr [phone] ring [phone] ea Provider: Hayley REYES, [address], [place], [address]. tel:[phone] Arthritis Arthritis Rheumatoid [facility] arthritis w/o MD Flor. Provider: Aditi [facility] rheumatoid 7 5794 [facility], 5[address] PLL[facility] factor of [facility], [facility], [address] [facility], [place], [facility] [place], [place], [place], [address]. [place], [id number], tel:[phone], [place]. 0304[address] [place] tel:[phone] tel:[phone] Arthritis Arthritis Rheumatoid Jan-0 [facility] arthritis w/o PA-C August. Provider: Aditi Pennington rheumatoid 7 [address] [facility], 5[address] PLLC factor of Godwin HARDIN, [address] [place] [address], [address] [place], [facility] [place], [address], [place], rat extermin[place], [place], [place], [place] [id number], [place], [address]. [id number], therapySarcoi [place]. tel:[phone] [place] dosis of lung tel:[phone] tel:[phone] ring [phone] Provider: Hayley REYES, Box [facility], [place], [address]. tel:[phone] Arthritis Arthritis Rheumatoid Aug- [facility] arthritis w/o PA-C August. Provider: Aditi Pennington rheumatoid 7 [address] [facility], 5[address] PLLC factor of Godwin HARDIN, [address] [facility], [address] [place], [facility] [place], [address], [place], [place], [place], [place], lungOther [id number], [place], [address]. [id number], rat exterminator [place]. tel:[phone] [place] drug tel:[phone] tel:[phone] therapyPolyar [phone] ring [phone] thritis Provider: Hayley REYES, [address] [facility], [place], [address]. tel:[phone] Arthritis Arthritis Rheumatoid May-0 [facility] w/o 2 Gale. 5794 Provider: Aditi Pennington rheumatoid 7 [facility], 5794 PLLC factor of MD Omaira, [address] [facility], [address] [facility], [address], [place], sis of [id number], [place], [place], [address]. [id number], rat exterminator tel:[phone] tel:[phone] [place] drug therapy 37650 218867Azouh tel:[phone] ring [phone] Provider: Hayley REYES, [address], [place], [address]. tel:[phone] Arthritis Arthritis Encounter for [facility] screening for MD Flor. Associates [facility]iti respiratory 6 5794 PLLC, 5794 PLLC tuberculosis [facility], [place], [place], [place], [place], [place], [id number], [id number], [place]. [place] tel:[phone] tel:[phone] Arthritis Arthritis Rheumatoid [facility] arthritis w/o MD Flor. Provider: Aditi Pennington rheumatoid 6 5794 [facility], 5794 PLLC factor of Godwin HARDIN, [address] [facility], [address] [facility], [address], [place], [place], [place], [place], lung[place] [id number], [place], [address]. [id number], rat exterminator [place]. tel:[phone] [place] drug therapy tel:[phone] tel:[phone] ring [phone] Provider: Hayley REYES, [address], [place], [address]. tel:[phone] Arthritis Arthritis Rheumatoid [facility] arthritis w/o MD Flor. Provider: Aditi Pennington rheumatoid 6 5794 [facility], 5794 PLLC factor of [facility] Cassie REYES, [facility], [address], [place], [facility] [place], [place], [place], [place], [address]. [place], [id number], tel:[phone], [place]. 757[address] [place] tel:[phone] tel:[phone] Arthritis Arthritis Rheumatoid [facility] arthritis w/o MD Flor. Provider: Aditi Pennington rheumatoid 6 [address] [facility], 5794 PLLC factor of Godwin HARDIN, [address] [facility], [address] [place], sitesOther [place], [address], [place], [place], [place], [place], [place] [id number], [place], [address]. [id number], therapySarcoi [place]. tel:[phone] [place] dosis of lung tel:[phone] tel:[phone] [facility] [phone] Provider: Hayley REYES, [address], [place], [address]. tel:[phone] Arthritis Arthritis Rheumatoid [facility] arthritis w/o PAChele August. Provider: Aditi Pennington rheumatoid 6 5[address] [facility], 5[address] PLLC factor of Godwin REYES, [facility], [address], [place], sitesSarcoido [place], [place], [place], [place], [address]. [place], lungOther [id number], tel:[phone], rat exterminator [place]. 214960 [place] drug tel:[phone] tel:[phone] therapyPolyar [phone] Bonnie marin Arthritis Arthritis Rheumatoid [facility] arthritis w/o CAROL Lei. Provider: Aditi Pennington rheumatoid 6 5[address] [facility], 5794 PLLC factor of Godwin HARDIN, [address] [facility], [address] [place], sitesOther [place], [address], [place], [place], [place], [place], [place] [id number], [place], [address]. [id number], therapySarcoi [place]. tel:[phone] US dosis of lung tel:[phone] tel:[phone] ring [phone] Provider: Hayley REYES, [address], [place], [address]. tel:[phone] Arthritis Arthritis Rheumatoid Allen-0 [facility] arthritis w/o PA-C August. Provider: Aditi Pennington rheumatoid 6 5[address] [facility], 5794 PLLC factor of Godwin HARDIN, [address] [facility], Godiwn Jamilah. [place], sitesSarcoido [place], [address], [place], [place], [place], [place], lungPolyarthr [id number], [place], [address]. [id number], itisOther [place]. tel:[phone] [place] intermediate tel:[phone] tel:[phone] drug therapy [phone] ring [phone] Provider: Hayley REYES, [address], [place], [address]. tel:[phone] Arthritis Arthritis Rheumatoid September-0 [facility] arthritis w/o PA-C [facility] Provider: Aditi Pennington rheumatoid 6 B. 5794 [facility], 5794 PLL[facility] factor of [facility] Cassie REYES, [facility], [address], [place], sitesOther [place], [place], [place], [address]. [place], [place] [id number], tel:[phone], therapySarcoi [place]. 670217 [place] dosis of lung tel:[phone] tel:[phone] Arthritis Arthritis Rheumatoid Jul-2 [facility] arthritis w/o PA-C [facility] Provider: Aditi Pennington rheumatoid 6 B. 5794 [facility], 5794 PLLC factor of [facility] Cassie REYES, [facility], [address], [place], sitesOther [place], [place], [place], [address]. [place], [place] [id number], tel:[phone], therapyPulmon [place]. 275077 [place] keegan tel:[phone] tel:[phone] sarcoidosis [phone] Arthritis Arthritis Rheumatoid Fe- [facility] arthritis w/o PA-C August. Provider: Aditi Pennington rheumatoid 6 5794 [facility], 5794 PLL[facility] factor of [facility] [place], [facility] multiple [place], [address], [place], sitesOther [place], [place], [place], [place], [address]. [place], drug therapy [id number], tel:[phone], [place]. [id number] [place] tel:[phone] tel:[phone] Arthritis Arthritis Pulmonary Oct-0 [facility] sarcoidosisRh PA-C August. Provider: Aditi Pennington eumatoid 5 5794 [facility], 5794 PLLC arthritis w/o [place] MD, [facility] rheumatoid [place], [address], [place], factor of [place], [place], [place], [place], [address]. [place], sitesPolyarth [id number], tel:[phone], ritisOther [place]. [address] [place] rat exterminator tel:[phone] tel:[phone] drug therapy [phone] Arthritis Arthritis Nov- [facility] PA-C August. Provider: Aditi Pennington 4 5794 [facility], 5794 PLLC [facility], [facility] [place], [address], [place], [place], [place], [place], [address]. [place], [id number], tel:[phone], [place]. 701[address] [place] tel:[phone] tel:[phone] Arthritis Arthritis Feb- Chai BACTERIOLOGIST FOOD-C [facility] Gale. 5794 Provider: Aditi Pennington 4 [facility], 5794 PLLC [place], [facility] [place], [facility] [place], [address], [place], [place], [place], [place], [id number], [place], [address]. [place], [place]. tel:[phone], tel:[phone] [place] [address] tel:[phone] Arthritis Arthritis [facility] AMY-Cheri Richards Provider: Aditi Pennington 3 B. 5794 [facility], 5794 PLLC [facility], [facility], [address], [place], [place], [place], [place], [place], [address]. [place], [id number], tel:[phone], [place]. 8137[address] [place] tel:[phone] tel:[phone] Arthritis Arthritis [facility] CAROL Richards Provider: Aditi Pennington 3 B. 5794 [facility], 5794 PLLC [facility], [facility], [address], [place], [place], [place], [place], [place], [address]. [place], [id number], tel:[phone], [place]. [address] [place] tel:[phone] tel:[phone] Arthritis Arthritis Chai BACTERIOLOGIST FOOD-C [facility] [place]. 5794 Provider: Aditi Pennington 3 [facility], [address] [facility], [facility] [place], [address], [place], [place], [place], [place], [id number], [place], [address]. [place], [place]. tel:[phone], tel:[phone] [place] [address] tel:[phone] Arthritis Arthritis [facility] BACTERIOLOGIST FOOD-C Provider: Aditi Pennington [address] [facility], 5794 PLLC [facility], [facility] [place], [address], [place], [place], [place], [place], [id number], [place], [address]. [place], [place]. tel:[phone], tel:[phone] [place] tel:[phone] Arthritis Arthritis Jul- Chai BACTERIOLOGIST FOOD-C [facility] 8 [address]. 5794 Provider: Aditi Pennington 3 [facility] Hayley [facility], 5794 PLLBucyrus [facility], [facility], [facility], [address], [place], [place], [place], [place], [id number], [place], [address]. [place]. tel:[phone], tel:[phone] [place] tel:[phone] Arthritis Arthritis [facility] PA-C August. Provider: [facility] [address] [facility], [address] [facility], [facility], [address], [place], [place], [place], [place], [address]. [place], [id number], tel:[phone], [place]. [id number] [place] tel:[phone] tel:[phone] Arthritis Arthritis September- [facility] PA-C August. Provider: [facility] [address] [facility], [address] [facility], [facility], [address], [place], [place], [place], [place], [address]. [place], [id number], tel:[phone], [place]. [id number] [place] tel:[phone] tel:[phone] Arthritis Arthritis Jul- [facility] PA-C August. Provider: [facility] [address] [facility], [address] [facility], [facility], [place], [place], [place], [place], [address] [place], [id number], [id number], [place]. [address], [place] tel:[phone] [place], tel:[phone] [place], [address]. [id number] tel:[phone] Family History Family Member Diagnosis Age At Onset Grandmother Grandfather Mother Sister Immunizations Vaccine Date Status Comments Influenza, injectable, MDCK, administered Source: Other Provider Flucelvax Quad 2017-2018Y Influenza, injectable, administered Source: Other Provider trivalent, split virus, 4 years and older, Fluvirin 5525-5166 Influenza, split virus, administered Note: approx ; Source: Other injectable, 3 years and older Provider Fluvirin [id number] Influenza virus vaccine, administered Source: Other Provider Injection Yet to receive Flu vaccine administered Source: Source Unspecified Influenza virus vaccine, administered Source: Other Provider Injection Never had Flu vaccine administered Source: Other Provider Never had Zoster administered Source: New Immunization Record Influenza virus vaccine, administered Source: Other Provider Injection Yet to receive Zoste administered Source: New Immunization Record Influenza virus vaccine, administered Source: Other Provider Injection Influenza virus vaccine, administered Source: Other Provider Injection pneumo (2 yrs or older) administered Source: Other Provider (PPV23) Payers Payer name Insurance type Covered libertarian ID Authorization(s) Medicare MB [id number] [facility] Supplement CI [id number] Social History Type Description Quantity Date Captured Comments Alcohol Use Details Unknown Caffeine Use Details Unknown Tobacco Use Status Smoking Status Unknown Sex Female Vital Signs Date / Height Weight BMI Pulse Blood Temperature Respiratory Body Head BMI Pulse Inhaled Time: Rate Pressure Rate Surface Circumference percentile Ox Ox Area 64.00 260.00 44.6 82 150/80 97.50 F 17 /min in lbs 3 /min mm[Hg] 2:24 kg/m PM eter (2) 88 122/74 16 /min -2017 /min mm[Hg] 3:15 PM Chief Complaint And Reason For Visit No information Reason For Referral Reason For Referral No information Plan Of Treatment Date Type Action Status Goal Tobacco cessation counseling completed Goal Tobacco cessation counseling completed Goal Tobacco cessation counseling completed Goal Tobacco cessation counseling completed Goal Tobacco cessation counseling completed Goal Tobacco cessation counseling completed Goal Tobacco cessation counseling completed Goal Tobacco cessation counseling completed Goal Tobacco cessation counseling completed Goal Tobacco cessation counseling completed Appointment Kamila Parker BOOKED Appointment Kamila Parkre BOOKED History Of Present Illness Encounter Date Complaint History Of Present Illness No information Functional Status Date Functional Assessment No information Medications Administered Medication Instructions Dosage Effective Dates (start - stop) Status Comments No information Instructions Date Instruction Additional Information Reviewed importance of compliance/adherence to medications prescribed Risks/benefits of medications reviewed Discussed importance of holding DMARDs/ biologics if patient develops an infection and to notify the treating physician Call if symptoms persist Discussed / Reviewed Labs follow-up with pulmonary as directed Risks/benefits of medications discussed, handout given on [place]poni Risks/benefits of medications reviewed Risks/benefits of medications discussed, handout given on Simponi Discussed importance of holding DMARDs/ biologics if patient develops an infection and to notify the treating physician Call if symptoms persist follow up with pulmonary as directed Reviewed importance of compliance/adherence to medications prescribed Reviewed importance of compliance/adherence to medications prescribed Risks/benefits of medications reviewed Discussed importance of holding DMARDs/ biologics if patient develops an infection and to notify the treating physician Discussed / Reviewed Labs Risks/benefits of medications reviewed Reviewed importance of compliance/adherence to medications prescribed Risks/benefits of medications reviewed Discussed importance of holding DMARDs/ biologics if patient develops an infection and to notify the treating physician follow-up with GI Reviewed importance of compliance/adherence to medications prescribed Risks/benefits of medications reviewed Discussed importance of holding DMARDs/ biologics if patient develops an infection and to notify the treating physician Reviewed importance of compliance/adherence to medications prescribed Risks/benefits of medications reviewed Discussed importance of holding DMARDs/ biologics if patient develops an infection and to notify the treating physician Reviewed importance of compliance/adherence to medications prescribed Avoid live vaccines Discussed importance of holding DMARDs/ biologics if patient develops an infection and to notify the treating physician Stretching Risks/benefits of medications reviewed Discussed / Reviewed Labs Call if symptoms persist followup with GI Reviewed importance of compliance/adherence to medications prescribed Risks/benefits of medications reviewed Discussed importance of holding DMARDs/ biologics if patient develops an infection and to notify the treating physician Reviewed importance of compliance/adherence to medications prescribed Risks/benefits of medications reviewed Discussed importance of holding DMARDs/ biologics if patient develops an infection and to notify the treating physician Diagnostic studies discussed/reviewed: Labs Call if symptoms persist Risks/benefits of medications reviewed Discussed importance of holding DMARDs/ biologics if patient develops an infection and to notify the treating physician Labs ordered to check disease activity. Labs ordered to check blood counts, liver and kidney functions to monitor safety of medication. Risks/benefits of medications reviewed Discussed importance of holding DMARDs/ biologics if patient develops an infection and to notify the treating physician Reviewed importance of compliance/adherence to medications prescribed Risks/benefits of medications reviewed Discussed importance of holding DMARDs/ biologics if patient develops an infection and to notify the treating physician Reviewed importance of compliance/adherence to medications prescribed Risks/benefits of medications reviewed Discussed importance of holding DMARDs/ biologics if patient develops an infection and to notify the treating physician
--- OUTSIDE RECORDS SUMMARY | 2018-03-21 14:36 | XMS REPORT | Continuity of Care Document ---
:1960 Author Organization [facility] Address [address], [place] [id number] Phone Care Team Providers Name Role Phone [...] MG - Active tablet MOUTH EVERY DAY Aspirin Low Dose take 1 tablet by 81 MG - Active 81 mg oral route every tablet,delayed day release lamotrigine 150 mg take 1 tablet by 150 MG - Active tablet oral route every day montelukast 10 mg take 1 tablet by [...] solution intravenous route every 4 weeks over Flexeril 10 mg Tab 1 po qhs - No Longer Active tramadol 50 mg Tab 1 to 2 qid prn as - No Longer needed Active Problems Condition Effective Dates Clinical Status Comments (start - stop) Rheumatoid arthritis w/o rheumatoid factor, multiple sites Rheumatoid arthritis w/o rheumatoid factor, multiple sites Other termite helper (current) drug therapy Sarcoidosis of lung Polyarthritis, unspecified Other termite helper (current) drug therapy Rheumatoid arthritis w/o rheumatoid factor of multiple sites Other shelter drug therapy Sarcoidosis of lung Polyarthritis Rheumatoid arthritis w/o rheumatoid factor of multiple sites Rheumatoid arthritis w/o rheumatoid factor of multiple sites Rheumatoid arthritis w/o rheumatoid factor of multiple sites Rheumatoid arthritis w/o rheumatoid factor of multiple sites Rheumatoid arthritis w/o rheumatoid factor of multiple sites Sarcoidosis of lung Other termite helper drug therapy Rheumatoid arthritis w/o rheumatoid factor of multiple sites Sarcoidosis of lung Other shelter drug therapy Diarrhea Rheumatoid arthritis w/o rheumatoid factor of multiple sites Rheumatoid arthritis w/o rheumatoid factor of multiple sites Other shelter drug therapy Sarcoidosis of lung Rheumatoid arthritis w/o rheumatoid factor of multiple sites Sarcoidosis of lung Other termite helper drug therapy Polyarthritis Rheumatoid arthritis w/o rheumatoid factor of multiple sites Sarcoidosis of lung Other termite helper drug therapy Encounter for screening for respiratory tuberculosis Rheumatoid arthritis w/o rheumatoid factor of multiple sites Sarcoidosis of lung Other shelter drug therapy Rheumatoid arthritis w/o rheumatoid factor of multiple sites Rheumatoid arthritis w/o rheumatoid factor of multiple sites Other shelter drug therapy Sarcoidosis of lung Rheumatoid arthritis w/o rheumatoid factor of multiple sites Sarcoidosis of lung Other termite helper drug therapy Polyarthritis Diarrhea Rheumatoid arthritis w/o rheumatoid factor of multiple sites Other termite helper drug therapy Sarcoidosis of lung Rheumatoid arthritis w/o rheumatoid factor of multiple sites Sarcoidosis of lung Polyarthritis Other shelter drug therapy Rheumatoid arthritis w/o rheumatoid factor of multiple sites Other termite helper drug therapy Sarcoidosis of lung Rheumatoid arthritis w/o rheumatoid factor of multiple sites Other shelter drug therapy Pulmonary sarcoidosis Rheumatoid arthritis w/o rheumatoid factor of multiple sites Other termite helper drug therapy Pulmonary sarcoidosis Rheumatoid arthritis w/o rheumatoid factor of multiple sites Polyarthritis Other termite helper drug therapy Sarcoidosis - Active Mapped from [facility] Chronic Conditions table on 08/05/2014 by the ICD9 to SNOMED Bulk Mapping Utility. The mapped diagnosis code was Sarcoidosis, 135, added by Chacho De Leon MD, with responsible provider Chacho De Leon MD. Onset date 07/10/2013; last addressed on 04/22/2014. Rheumatoid arthritis - Active Mapped from [facility] Chronic Conditions table on 08/05/2014 by the ICD9 to SNOMED Bulk Mapping Utility. The mapped diagnosis code was Rheumatoid Arthritis, 714.0, added by Susie Alonzo, with responsible provider Susie Griffith PA-C. Onset date 03/05/2013; last addressed on 04/22/2014. Pure hypercholesterolemia - Active Mapped from [facility] Chronic Conditions table on 08/05/2014 by the ICD9 to SNOMED Bulk Mapping Utility. The mapped diagnosis code was Pure hypercholesterolemia , 272.0, added by Brianne Loera, with responsible provider Chacho De Leon MD. Onset date 03/22/2011; last addressed on 07/06/2011. Migraine - Active Mapped from [facility] Chronic Conditions table on 08/05/2014 by the ICD9 to SNOMED Bulk Mapping Utility. The mapped diagnosis code was Migraine, unspecified without mention of intractab, 346.90, added by Brianne Loera, with responsible provider Chacho De Leon MD. Onset date 03/22/2011; last addressed on 07/06/2011. Depressive disorder - Active Mapped from [facility] Chronic Conditions table on 08/05/2014 by the ICD9 to SNOMED Bulk Mapping Utility. The mapped diagnosis code was Depressive disorder, not elsewhere classified, 311, added by Brianne Loera, with responsible provider Chacho De Leon MD. Onset date 03/22/2011; last addressed on 07/06/2011. Anxiety state - Active Mapped from [facility] Chronic Conditions table on 08/05/2014 by the ICD9 to SNOMED Bulk Mapping Utility. The mapped diagnosis code was Anxiety state, unspecified, 300.00, added by Brianne Loera, with responsible provider Chacho De Leon MD. Onset date 03/22/2011; last addressed on 07/06/2011. Anemia - Active Mapped from [facility] Chronic Conditions table on 08/05/2014 by the ICD9 to SNOMED Bulk Mapping Utility. The mapped diagnosis code was Anemia, unspecified, 285.9, added by Brianne Loera, with responsible provider Chacho De Leon MD. Onset date 03/22/2011; last addressed on 07/06/2011. Bipolar disorder - Active Mapped from [facility] Chronic Conditions table on 08/05/2014 by the ICD9 to SNOMED Bulk Mapping Utility. The mapped diagnosis code was Bipolar disorder, unspecified, 296.80, added by Brianne Loera, with responsible provider Chacho De Leon MD. Onset date 03/22/2011; last addressed on 07/06/2011. Chronic ulcer of skin - Active Mapped from [facility] Chronic Conditions table on 08/05/2014 by the ICD9 to SNOMED Bulk Mapping Utility. The mapped diagnosis code was Chronic ulcer of unspecified site, 707.9, added by Brianne Loera, with responsible provider Chacho De Leon MD. Onset date 03/22/2011. Degenerative joint disease - Active Mapped from [facility] involving multiple joints Chronic Conditions table on 08/05/2014 by the ICD9 to SNOMED Bulk Mapping Utility. The mapped diagnosis code was Osteoarthrosis, generalized, involving multiple si, 715.09, added by Biranne Loera, with responsible provider Chacho De Leon MD. Onset date 03/22/2011. Asthma - Active Mapped from [facility] Chronic Conditions table on 08/06/2014 by the ICD9 to SNOMED Bulk Mapping Utility. The mapped diagnosis code was Asthma, 493, added by Brianne Loera, with responsible provider Chacho De Leon MD. Onset date 03/22/2011; last addressed on 07/06/2011. Fibromyositis - Active Mapped from [facility] Chronic Conditions table on 09/19/2014 by the ICD9 to SNOMED Bulk Mapping Utility. The mapped diagnosis code was Myalgia and myositis, unspecified, 729.1, added by Brianne Loera, with responsible provider Chacho De Leon MD. Onset date 03/22/2011; last addressed on 05/15/2013. Gastro-esophageal reflux - Active Mapped from [facility] disease with esophagitis Chronic Conditions table on 08/05/2014 by the ICD9 to SNOMED Bulk Mapping Utility. The mapped diagnosis code was Reflux esophagitis, 530.11, added by Brianne Loera, with responsible provider Chacho De Leon MD. Onset date 03/22/2011. Rheumatoid factor negative - Active Procedures Procedure Date ROUTINE VENIPUNCTURE COMPLETE CBC W/AUTO DIFF WBC RBC SED RATE, AUTOMATED C-REACTIVE PROTEIN ASSAY OF CREATININE TRANSFERASE (AST) (SGOT) ALANINE AMINO (ALT) (SGPT) OFFICE/OUTPATIENT VISIT, EST Results Test Name Date and Time Measure Units Reference Range Abnormal Flag Status Comments Panel Description: A-TSPOT (IMMUNOCOMPROMISED) Final Document Panel Description: CBC Final WBC 15:02:00 7.2 10 3.7-10.1 Final RBC 15:02:00 4.22 10 3.50-5.50 Final HGB 15:02:00 11.1 g/dL 12.0-16.0 L Final HCT 15:02:00 35.5 % 36.0-48.0 L Final MCV 15:02:00 84.1 fL 80.0-100.0 Final MCH 15:02:00 26.2 pg 26.0-34.0 Final MCHC 15:02:00 31.2 g/dL 31.0-37.0 Final RDW 15:02:00 15.4 % 10.0-15.0 H Final PLATELETS 15:02:00 239 10 150-500 Final MPV 15:02:00 5.6 fL 6.0-10.0 L Final PAT# 15:02:00 4.48 10 2.10-8.00 Final LYM# 15:02:00 1.89 10 1.00-5.00 Final MONO# 15:02:00 0.45 10 0.10-1.00 Final EOS# 15:02:00 0.3 10 0.0-0.5 Final BASO# 15:02:00 0.1 10 0.0-0.2 Final PAT% 15:02:00 62.2 % 50.0-80.0 Final LYM% 15:02:00 26.2 % 25.0-50.0 Final MONO% 15:02:00 6.3 % 2.0-10.0 Final EOS% 15:02:00 4.3 % 0.0-5.0 Final BASO% 15:02:00 1.0 % 0.0-4.0 Final Panel Description: ESR Final ESR 15:02:00 48 mm/Hr 0-20 H Final Panel Description: ALT Final ALT 15:02:00 20 U/L 30-65 L Final Panel Description: AST Final AST 15:02:00 17 U/L 15-37 Final Panel Description: CREATININE Final CREATININE 15:02:00 0.9 mg/dL 0.6-1.2 Final eGFR 15:02:00 64.5 mL/min/1.73m Final Panel Description: CRP Final CRP 15:02:00 3.5 mg/dL 0.2-1.0 H Final Advance Directives Directive Yes / No Effective Date File Name No information Encounters Encounter Practice Location Reason(s) Diagnoses Date Provider Providers Description For Visit Copied on Encounter Arthritis Arthritis Rheumatoid Demetrius HARDIN Referring [facility] arthritis w/o Pilar. 5794 Provider: Aditi Pennington rheumatoid 8 [facility] [place] [facility], 5794 PLLC Omaira velez Dodds PA, [facility] [place], [address] [facility], [place], [facility], Located Within [facility], [id number], [place], [address]. [place], [place]. tel:[phone], tel:[phone] [place] [id number] tel:[phone] OFFICE/OUTPA Arthritis Arthritis Rheumatoid Rheumatoid [employer] [facility] w/o PA-C August. Provider: BON Pennington (chief rheumatoid 8 5794 [facility], 5794 PLLC complaint) Godwin velez MD, 739 [facility] [place], [address], [place], termite helper [place], [place], (current) [id number], [place], [address]. [id number], drug [place]. tel:[phone] [place] therapySarcoi tel:[phone] tel:[phone] dosis of [phone] ring [phone] lungPolyarthr Provider: Hayley vallejoified Cassie PA, [address], [place], [address]. tel:[phone] Arthritis Arthritis Other long [facility] term 7 PA-C August. Aditi Pennington (current) 8 5794 PLLC, 5794 PLLC drug therapy [facility], [place], [place], [place], [id number], [id number], [place]. [place] tel:[phone] tel:[phone] Arthritis Arthritis Rheumatoid Nov- [facility] arthritis w/o 3 PA-C August. Provider: Aditi trevizo 8 5794 [facility], 5794 PLLC factor of Godwin HARDIN, 739 [facility], Godwin Jamilah. [place], sitesOther [place], [address], [place], [place], [place], [place] [id number], [place], [address]. [id number], therapySarcoi [place]. tel:[phone] [place] dosis of tel:[phone] tel:[phone] lungPolyarthr [phone] ring [phone] itis Provider: Hayley REYES, [address] [facility], [place], [address]. tel:[phone] Arthritis Arthritis [facility] PA-C August. Aditi Pennington 8 5794 PLLC, 5794 PLLC [facility], [place], [place], [place], [id number], [id number], [place]. [place] tel:[phone] tel:[phone] Arthritis Arthritis Rheumatoid [facility] arthritis w/o MD Flor. Provider: Aditi trevizo 8 5794 [facility], 5794 PLLC factor of [facility] REYES, [facility], [address], [place], [facility] [place], [place], [place], [address]. [place], [id number], tel:[phone], [place]. [id number] [place] tel:[phone] tel:[phone] Arthritis Arthritis Rheumatoid [facility] arthritis w/o MD Flor. Provider: Associates Associates rheumatoid 8 5794 [facility], 5794 PLLC factor of [facility], [facility], [place] [address], [place], [facility] [place], [place], [place], [place], [address]. [place], [id number], tel:[phone], [place]. [address] [place] tel: tel: [phone] Arthritis Arthritis Rheumatoid Aug- [facility] arthritis w/o 0-201 MD Flor. Provider: Associates Associates rheumatoid 8 5794 [facility], 5794 PLLC factor of [facility], [facility], [place] [address], [place], [facility] [place], [place], [place], [address]. [place], [id number], tel:[phone], [place]. 959261 [place] tel: tel: [phone] Arthritis Arthritis Rheumatoid Jul- [facility] arthritis w/o 3- MD Flor. Provider: Associates Associates rheumatoid 8 5794 [facility], 5794 PLLC factor of [facility], [facility], [place] [address], [place], [facility] [place], [place], [place], [address]. [place], [id number], tel:[phone], [place]. [id number] [place] tel: tel: [phone] Arthritis Arthritis Rheumatoid Mar-0 [facility] arthritis w/o 5 PA-C August. Provider: [facility] Associates rheumatoid 8 5794 [facility], 5794 PLLC factor of Godwin HARDIN, 739 [facility], Godwin Jamilah. [place], [facility] [place], [address], [place], [place], [place], lungOther [id number], [place], [address]. [id number], shelter [place]. tel:[phone] [place] drug therapy tel: [phone] tel:+ [phone] ring [phone] Provider: Hayley REYES, [address] [facility], [place], [address]. tel:[phone] Arthritis Arthritis Rheumatoid [facility] arthritis w/o PA-C August. Provider: Aditi Pennington rheumatoid 7 5794 [facility], 5794 PLLC factor of Godwin HARDIN, 739 [facility], [address] [place], sitesSarcoido [place], [address], [place], [place], [place], lungOther [id number], [place], [address]. [id number], shelter [place]. tel:[phone] [place] drug tel:[phone] tel:[phone] therapyDiarrh [phone] ring [phone] ea Provider: Hayley REYES, Box [facility], [place], [address]. tel:[phone] Arthritis Arthritis Rheumatoid [facility] arthritis w/o MD Flor. Provider: Aditi Associates rheumatoid 7 5794 [facility], [address] [facility] [place] Cassie REYES, [facility], [address] [facility], [place], [facility] [place], [place], [place], [address]. [place], [id number], tel:[phone], [place]. [id number] [place] tel:[phone] tel:[phone] Arthritis Arthritis Rheumatoid [facility] arthritis w/o PA-C August. Provider: Aditi Associates rheumatoid 7 5794 [facility], 5794 PLLC factor of Godwin HARDIN, 739 [facility], [address] [place], sitesOther [place], [address], [place], [place], [place], [place] [id number], [place], [address]. [id number], therapySarcoi [place]. tel:[phone] [place] dosis of lung tel:[phone] tel:[phone] ring [phone] Provider: Hayley REYES, [address], [place], [address]. tel:[phone] Arthritis Arthritis Rheumatoid Aug- [facility] arthritis w/o PA-C August. Provider: Aditi Pennington rheumatoid 7 5794 [facility], 5794 PLLC factor of Godwin HARDIN, 739 [facility], [address] [facility], [address], [place], [place], [place], lung[place] [id number], [place], [address]. [id number], termite helper [place]. tel:[phone] [place] drug tel:[phone] tel:[phone] therapyPolyar [phone] ring [phone] thritis Provider: Hayley REYES, [address], [place], [address]. tel:[phone] Arthritis Arthritis Rheumatoid May-0 Chai DISTILLATION OPERATOR HELPER-C [facility] arthritis w/o Gale. 5794 Provider: Aditi Pennington rheumatoid 7 [facility] [place] [facility], 5794 PLLC factor of MD Omaira, [address]39 [facility], [address] [facility], [address], [place], sis of [id number], [place], [address]. [id number], termite helper tel:[phone] tel:[phone] [place] drug therapy [phone] [id number] tel:[phone] ring [phone] Provider: Hayley REYES, [address], [place], [address]. tel:[phone] Arthritis Arthritis Encounter for [facility] screening for MD Flor. [facility] respiratory 6 5794 PLLC, 5794 PLLC tuberculosis [facility], [place], [place], [place], [id number], [id number], [place]. [place] tel:[phone] tel:[phone] Arthritis Arthritis Rheumatoid [facility] arthritis w/o MD Flor. Provider: Aditi Pennington rheumatoid 6 5794 [facility], 5794 PLLC factor of Godwin HARDIN, 739 [facility], [address] [place], [facility] [place], [address], [place], [place], [place], [place] [id number], [place], [address]. [id number], shelter [place]. tel:+ [place] drug therapy tel:+ [phone] tel:+ [phone] ring [phone] Provider: Hayley REYES, [address] [facility], [place], [address]. tel:[phone] Arthritis Arthritis Rheumatoid [facility] arthritis w/o MD Flor. Provider: Aditi Pennington rheumatoid 6 5794 [facility], 5794 PLLC factor of Godwin REYES, [facility], [address] [facility], [place], [facility] [place], [place], [place], [address]. [place], [id number], tel:[phone], [place]. [address] [place] tel:+ tel:[phone] Arthritis Arthritis Rheumatoid [facility] arthritis w/o MD Flor. Provider: Aditi Pennington rheumatoid 6 5794 [facility], 5794 PLLC factor of Godwin HARDIN, 739 [facility], [address] [place], sitesOther [place], [address], [place], [place], [place], [place] [id number], [place], [address]. [id number], therapySarcoi [place]. tel:[phone] [place] dosis of lung tel:+ [phone] tel:[phone] ring [phone] Provider: Hayley REYES, [address], [place], [address]. tel:[phone] Arthritis Arthritis Rheumatoid [facility] arthritis w/o PA-C August. Provider: Aditi Pennington rheumatoid 6 5794 [facility], 5794 PLLC factor of Godwin REYES, [facility], [address] [facility], [place], [facility] [place], [place], [place], [place], [address]. [place], lungOther [id number], tel:[phone], shelter [place]. [address] [place] drug tel:[phone] tel:[phone] therapyPolyar [phone] [id number] Bonnie marin Arthritis Arthritis Rheumatoid [facility] arthritis w/o PA-C Do. Provider: Aditi Pennington rheumatoid 6 5794 [facility], 5794 PLLC factor of Godwin HARDIN, [address] [place] [address], [address] [place], [facility] [place], [address], [place], [place], [place], [place] [id number], [place], [address]. [id number], therapySarcoi [place]. tel:[phone] US dosis of lung tel:[phone] tel:[phone] ring [phone] Provider: Hayley REYES, Box [facility], [place], [address]. tel:[phone] Arthritis Arthritis Rheumatoid [facility] arthritis w/o PA-C August. Provider: Aditi Pennington rheumatoid 6 5794 [facility], 5794 PLLC factor of Godwin HARDIN, 9 [facility], [address] [place], [facility] [place], [address], [place], [place], [place], lungPolyarthr [id number], [place], [address]. [id number], itisOther [place]. tel:[phone] [place] shelter tel:[phone] tel:[phone] drug therapy [phone] ring [phone] Provider: Hayley REYES, [address], [place], [address]. tel:[phone] Arthritis Arthritis Rheumatoid [facility] arthritis w/o PA-C Provider: Aditi trevizo 6 Susie Mcconnell [facility], 5794 PLLC factor of 5794 Cassie PA, [facility] [address], [place], sitesOther [place], [place], [place], [place], [address]. [place], [place], tel:[phone], therapySarcoi [id number], 823016 [place] dosis of lung [place]. tel:[phone] tel:[phone] Arthritis Arthritis Rheumatoid Jul- [facility] arthritis w/o PA-C Provider: Aditi trevizo 6 Susie Mcconnell [facility], 5794 PLLC factor of 5794 Cassie CA, [facility] [address], [place], sitesOther [place], [place], [place], [place], [address]. [place], [place], tel:[phone], therapyPulmon [id number], [id number] [place] keegan [place]. tel:[phone] sarcoidosis tel:[phone] Arthritis Arthritis Rheumatoid [facility] arthritis w/o PA-C August. Provider: Aditi trevizo 6 5794 [facility], 5794 PLLC factor of [facility], [facility] [place] multiple [place], [address], [place], sitesOther [place], [place], [place], [place], [address]. [place], drug therapy [id number], tel:[phone], [place]. 969592 [place] tel:[phone] tel:[phone] Arthritis Arthritis Pulmonary [facility] sarcoidosisRh PA-C August. Provider: Aditi Pennington eumatoid 5 5794 [facility], 5794 PLLC arthritis w/o [facility] Cassie PA, [facility] [place] rheumatoid [place], [address], [place], factor of [place], [place], [place], [place], [address]. [place], [facility] [id number], tel:[phone], ritisOther [place]. [id number] [place] termite helper tel:+ tel:[phone] drug therapy [phone] Arthritis Arthritis Nov- [place] Referring [facility] PA-C August. Provider: Aditi Pennington 4 5794 [facility], 5794 PLLC [facility], [facility], [address], [place], [place], [place], [place], [address]. [place], [id number], tel:[phone], [place]. 712175 [place] tel:+ tel:[phone] Arthritis Arthritis Feb- Chai DISTILLATION OPERATOR HELPER-C [facility] Gale. 5794 Provider: Aditi Pennington [address] [facility] [place] [facility], 5794 PLLC [facility], [facility], [address], [place], [place], [place], [place], [id number], [place], [address]. [place], [place]. tel:[phone], tel:+ [phone] [place] 982826 tel:+ [phone] Arthritis Arthritis Apr- [facility] PA-C Provider: Aditi Pennington 3 [facility]ie [facility], 5794 PLLC 5794 [facility], [facility] [address], [place], [place], [place], [place], [place], [address]. [place], [place], tel:[phone], [id number], [id number] [place]. tel:+[phone] tel:[phone] Arthritis Arthritis Feb- [facility] Referring [facility] PA-C Provider: Aditi Pennington 3 [facility], 5794 PLLC 5794 [facility], [facility] [address], [place], [place], [place], [place], [place], [address]. [place], [place], tel:[phone], [id number], [id number] [place]. tel:[phone] tel:[phone] Arthritis Arthritis Chai DISTILLATION OPERATOR HELPER-C [facility] Gale. 5794 Provider: Aditi Pennington [address] [facility] [place] [facility], 5794 PLLC [facility], [facility] [place], [address], [place], [place], [place], [place], [id number], [place], [address]. [place], [place]. tel:[phone], tel:[phone] [place] 932224 tel:[phone] Arthritis Arthritis [facility] DISTILLATION OPERATOR HELPER-C Provider: Aditi Pennington 3 [address]. 310 [facility], 5794 PLLC [facility], [facility], [address], [place], [place], [place], [place], [address]. [place], [id number], tel:[phone], [place]. 940307 [place] tel:[phone] tel:[phone] Arthritis Arthritis Chai DISTILLATION OPERATOR HELPER-C [facility]. 5794 Provider: Aditi Pennington [address] [facility] [place] [facility], 5[address] PLL[facility], [facility] [place], [address], [place], [place], [place], [place], [id number], [place], [address]. [place], [place]. tel:[phone], tel:[phone] [place] [id number] tel:[phone] Arthritis Arthritis [facility] PA-C August. Provider: Aditi Pennington 2 5[address] [facility], 5[address] [facility], [facility], [address], [place], [place], [place], [place], [place], [address]. [place], [id number], tel:[phone], [place]. [id number] [place] tel:[phone] tel:[phone] Arthritis Arthritis September- [facility] August. Provider: [facility] 2 [address] [facility], 5794 [facility], [facility], [address], [place], [place], [place], [place], [place], [address]. [place], [id number], tel:[phone], . [id number] tel:[phone] tel:[phone] Arthritis Arthritis Jul- [facility] [place]- August. Provider: [facility] 1 [address] Giles Pritchard [facility], [facility], [place], [place], [place], [address] [place], [id number], [facility] [address] [id number], . [address], [place] tel:+[phone] [place], tel:[phone] [place], [address]. [id number] tel:[phone] Family History Family Member Diagnosis Age At Onset Grandmother Grandfather Mother Sister Immunizations Vaccine Date Status Comments Influenza, injectable, MDCK, administered Source: Other Provider Flucelvax Quad 2017-2018Y Influenza, injectable, administered Source: Other Provider trivalent, split virus, 4 years and older, Fluvirin [id number] Influenza, split virus, administered Note: approx ; Source: Other injectable, 3 years and older Provider Fluvirin [id number] Influenza virus vaccine, administered Source: Other Provider [...] (PPV23) Payers Payer name Insurance type Covered democrat ID Authorization(s) Medicare RANDY [id number] AAR Supplement [id number] Social History Type Description Quantity Date Captured Comments Alcohol Use Details No Caffeine Use Details coffee 3 cups per day Tobacco Use Status Cigarette smoker Smoking Status Current every day smoker Smoking Tobacco Use Cigarette: No Details Available Cigarette: No Details Available Details Sex Female Vital Signs Date / Height Weight BMI Pulse Blood Temperature Respiratory Body Head BMI Pulse Inhaled Time: Rate Pressure Rate Surface Circumference percentile Ox Ox Area 64.00 2018 in 2:22 PM 259.00 122/88 2018 lbs mm[Hg] 2:26 PM Chief Complaint And Reason For Visit [...] completed Appointment Kamila Parker BOOKED Appointment Kamila Parker BOOKED History Of Present Illness Encounter Date Complaint History Of Present Illness Rheumatoid arthritis The pain severity is 8/10. Patient is experiencing generalized morning stiffness for all day. Patient denies having hair loss, diarrhea, fever, rash, oral ulcers (mouth sores) and photosensitivity. Patient is currently taking Methotrexate with no side effects. Functional Status Date Functional Assessment No information Medications Administered Medication Instructions Dosage Effective Dates (start - stop) Status Comments No information Instructions Date Instruction Additional Information Risks/benefits of medications discussed, handout given on [employer] Reviewed importance of compliance/adherence to medications prescribed Risks/benefits of medications reviewed Discussed importance of holding DMARDs/ biologics if patient develops an infection and to notify the treating physician Call if symptoms persist Discussed / Reviewed Labs follow-up with pulmonary as directed Call if symptoms persist follow up with pulmonary as directed Discussed importance of holding DMARDs/ biologics if patient develops an infection and to notify the treating physician Risks/benefits of medications discussed, handout given on [employer]poni Risks/benefits of medications reviewed Reviewed importance of compliance/adherence to medications prescribed Risks/benefits of medications reviewed Discussed importance of holding DMARDs/ biologics if patient develops an infection and to notify the treating physician Discussed / Reviewed Labs Reviewed importance of compliance/adherence to medications prescribed Discussed importance of holding DMARDs/ biologics if patient develops an infection and to notify the treating physician follow-up with GI Risks/benefits of medications reviewed Reviewed importance of compliance/adherence to medications prescribed Risks/benefits of medications reviewed Reviewed importance of [...] Reviewed importance of compliance/adherence to medications prescribed Discussed importance of holding DMARDs/ biologics if patient develops an infection and to notify the treating physician Risks/benefits of medications reviewed
--- OUTSIDE RECORDS SUMMARY | 2018-03-21 14:37 | XMS REPORT ---
:1960 External Reference #:[id number] Author Organization [facility] 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 Allie Hudson MD Primary Care Physician Unavailable Payers Type Date Identification Numbers Payment Provider Subscriber Medicare Primary Policy Number: [id number] Medicare Kamila Parker PayID: [id number] [address] [place] [address] [facility] Part B Policy Number: [id number] [facility] Kamila Parker PayID: [id number] [address] [place] [address] Medicare Primary Effective: 2008 Policy Number: Medicare Kamila Parker [id number] Expires: 2018 PayID: [id number] [address] [place] [address] Commercial Expires: 2010 Policy Number: [id number] Osheaanita Parker PayID: [id number] [address] [address] [place] [address] Medicaid Expires: 2007 Policy Number: [id number] Medicaid Kamila Parker Group Name: 1 1 [address] PayID: [id number] [place] [address] Problems Date Description Provider Status Onset: 08/02/2010 FX Base Of Other Metacarpal Megha Trent N.P. 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 Rec l half the MD Robson evening before and half the morning of [...] Hx Capsules 500mg 30cap 1 [facility] Giovani Trujillo M.D. 09/20 [...] 02/15 Hx Tablets 750mg 1tabs po x1 [facility] [place], Giovani Trujillo M.D. 02/25 Percocet 08/13 Hx Tablets 5-325mg 60tab 1 tab q4h DeThomcarrillo, s prn Demian Galloway MD 09/01 Zithromax Z-Bautista 08/04 Hx Tablets 250mg as 815.02 Twan, directed Megha Sanchez - N.P. 09/01 Clindamycin HCL 08/02 Hx Capsules 300mg 40cap every 6 V67.09 s hours x Megha Sanchez, - 10 days N.P. 09/01 [place] 08/02 Hx Tablets 5-325mg 30tab 1 tab [...] Hx Unknown / Vicoprofen Hx Unknown / [place] Hx Tablets 10-325mg 1-2 tabs Adelina po [...] - 09/[address] [id number] Unknown /0000 Part - 12/[address] 3mg Take Unknown /0000 Part Three - Capsules 09/20 By Mouth Every Day Vitamin D Hx Capsules [id number] Take 1 Unknown (Ergocalciferol) /0000 Capsule - [...] MD prefilled Depomedrol Administered Injection Kristopher, 40mg/1cc 008 Ethel Baldwin MD Depomedrol Administered Injection Kristopher, 40mg/1cc Jagdeep Baldwin MD Depomedrol Administered Injection Kristopher, 40mg/1cc 007 Ethel Baldwin MD Vital Signs Date Vital Result Comment 03/05/2018 BP Systolic Sitting Right Arm 143 mmHg BP Diastolic Sitting Right Arm 78 mmHg Body Temperature 97.7 F Heart Rate 82 /min Respiratory Rate 18 /min Height 63 inches 5'3" Weight 260.38 lb BMI (Body Mass Index) 46.1 kg/m2 BSA (Body Surface Area) 2.16 m2 [place] body weight in kilograms 52 O2 % BldC Oximetry 94 % 01/24/2018 BP Systolic 137 mmHg BP Diastolic 84 mmHg Body Temperature 98.1 F Heart Rate 78 /min Height 63 inches 5'3" Weight 262.00 lb BMI (Body Mass Index) 46.4 kg/m2 BSA (Body Surface Area) 2.17 m2 [place] body weight in kilograms 52 O2 % BldC Oximetry 97 % Pain Level 8 01/16/2018 BP Systolic Sitting Left Arm 114 mmHg BP Diastolic Sitting Left Arm 66 mmHg Heart Rate 82 /min Respiratory Rate 20 /min Height 63 inches 5'3" Weight 263.00 lb BMI (Body Mass Index) 46.6 kg/m2 BSA (Body Surface Area) 2.17 m2 [place] body weight in kilograms 52 O2 % BldC Oximetry 94 % 12/25/2017 BP Systolic 138 mmHg BP Diastolic 79 mmHg Body Temperature 98.8 F Heart Rate 89 /min Respiratory Rate 15 /min Height 63 inches 5'3" Weight 255.00 lb BMI (Body Mass Index) 45.2 kg/m2 BSA (Body Surface Area) 2.14 m2 [place] body weight in kilograms 52 O2 % BldC Oximetry 96 % Room Air Pain Level 8 11/27/2017 BP Systolic Sitting Left Arm 138 mmHg BP Diastolic Sitting Left Arm 85 mmHg Body Temperature 97.8 F Heart Rate 102 /min Respiratory Rate 19 /min Height 64 inches 5'4" Weight 158.00 lb BMI (Body Mass Index) 27.1 kg/m2 BSA (Body Surface Area) 1.77 m2 [place] body weight in kilograms 54 O2 % BldC Oximetry 94 % 11/09/2017 BP Systolic Sitting Left Arm 147 mmHg BP Diastolic Sitting Left Arm 73 mmHg Body Temperature 98.9 F Heart Rate 80 /min Respiratory Rate 17 /min Height 64 inches 5'4" Weight 258.00 lb BMI (Body Mass Index) 44.3 kg/m2 BSA (Body Surface Area) 2.18 m2 [place] body weight in kilograms 54 O2 % BldC Oximetry 97 % 10/12/2017 BP Systolic Sitting Left Arm 118 mmHg BP Diastolic Sitting Left Arm 68 mmHg Heart Rate 110 /min Respiratory Rate 16 /min Height 64 inches 5'4" Weight 257.00 lb BMI (Body Mass Index) 44.1 kg/m2 BSA (Body Surface Area) 2.18 m2 [place] body weight in kilograms 54 O2 % BldC Oximetry 97 % Ora 10/03/2017 BP Systolic 156 mmHg BP Diastolic 92 mmHg Body Temperature 97.9 F Heart Rate 88 /min Respiratory Rate 15 /min Height 64 inches 5'4" Weight 256.00 lb BMI (Body Mass Index) 43.9 kg/m2 BSA (Body Surface Area) 2.17 m2 [place] body weight in kilograms 54 Pain Level 9 06/07/2017 BP Systolic Sitting Left Arm 144 mmHg BP Diastolic Sitting Left Arm 82 mmHg Heart Rate 117 /min Respiratory Rate 16 /min Height 64 inches 5'4" Weight 255.00 lb BMI (Body Mass Index) 43.8 kg/m2 BSA (Body Surface Area) 2.17 m2 [place] body weight in kilograms 54 O2 % BldC Oximetry 94 % 04/27/2017 BP Systolic Sitting Left Arm 128 mmHg BP Diastolic Sitting Left Arm 82 mmHg Heart Rate 102 /min Respiratory Rate 16 /min Height 64 inches 5'4" Weight 252.00 lb BMI (Body Mass Index) 43.3 kg/m2 BSA (Body Surface Area) 2.16 m2 [place] body weight in kilograms 54 04/06/2017 BP Systolic Sitting Left Arm 124 mmHg BP Diastolic Sitting Left Arm 80 mmHg Heart Rate 81 /min Respiratory Rate 16 /min Height 64 inches 5'4" Weight 253.00 lb BMI (Body Mass Index) 43.4 kg/m2 BSA (Body Surface Area) 2.16 m2 [place] body weight in kilograms 54 03/16/2017 BP Systolic Sitting Left Arm 130 mmHg BP Diastolic Sitting Left Arm 84 mmHg Heart Rate 86 /min Respiratory Rate 16 /min Height 64 inches 5'4" Weight 253.00 lb BMI (Body Mass Index) 43.4 kg/m2 BSA (Body Surface Area) 2.16 m2 [place] body weight in kilograms 54 09/20/2016 BP Systolic 130 mmHg BP Diastolic 82 mmHg Heart Rate 76 /min Height 64 inches 5'4" Weight 245.00 lb BMI (Body Mass Index) 42.0 kg/m2 BSA (Body Surface Area) 2.13 m2 [place] body weight in kilograms 54 05/14/2015 BP [...] Test Date Test Result H/L Range Note CBC W/Automated Diff 03/05/2018 White Blood Count 5.7 K/uL 3.1-10.7 1 Red Blood Count 4.02 M/uL 3.90-5.40 1 Hemoglobin 10.6 gm/dL Low 11.6-15.8 1 Hematocrit 34.8 % Low 36.0-46.1 1 Mean Cell Volume 86.6 fl 80.9-99.0 1 Mean Corpuscular HGB 26.4 pg 25.9-32.7 1 Mean Corpuscular HGB Conc 30.5 g/dL Low 30.8-34.3 1 Platelet Count 224 K/uL 155-360 1 Red Cell Distri Width SD 48.3 fl High 3-47 1 Red Cell Distri Width %CV 15.6 % High 11.7-14.4 1 Mean Platelet Volume 9.5 fL 8.9-12.4 1 Neut% 64.4 % 40.4-72.8 1 Lymph % 27.9 % 20.0-42.0 1 [place] % 3.4 % Low 4.3-13.2 1 Eo% 4.1 % 0.0-6.6 1 Bas% 0.2 % 0.0-1.1 1 Neut# 3.65 K/uL 1.8-7.0 1 Lymph # 1.58 K/uL 1.0-4.0 1 [place] # 0.19 K/uL Low 0.3-0.9 1 Eos # 0.23 K/uL 0.0-0.5 1 Baso # 0.01 K/uL 0.0-0.1 1 Laboratory test finding 03/05/2018 Sedimentation Rate 64 mm/hr High 0-30 1, 2 C-Reactive Protein,Quant 42.9 mg/L High <3.0 1 Hemoglobin/Hematocrit 12/13/2017 Hemoglobin 9.9 gm/dL Low 11.6-15.8 3 Hematocrit 31.3 % Low 36.0-46.1 3 Hemoglobin/Hematocrit 12/12/2017 Hemoglobin 9.8 gm/dL Low 11.6-15.8 3 Hematocrit 30.4 % Low 36.0-46.1 3 Basic Metabolic Panel 12/11/2017 Glucose 198 mg/dL High 74-106 3 BUN 10 mg/dL 7-18 3 Creatinine 1.1 mg/dL 0.6-1.3 3 Glom Filtration Rate, Estimate 55 mL/min >60 3 If >60 mL/min >60 3, 4 BUN/Creat 9.0 ratio 3 Sodium 142 mmol/L 136-145 3 Potassium 4.2 mmol/L 3.5-5.1 3 Chloride 108 mmol/L High 98-107 3 Carbon Dioxide 25 mmol/L 21-32 3 Anion Gap 9 mEq/L 8-16 3 Calcium 8.6 mg/dL 8.5-10.1 3 MRSA Screen 11/27/2017 MRSA Screen NO METHICILLIN R 5, 6 <SEE NOTE> Serum sodium 05/25/2017 Serum sodium 141 136-145 measurement measurement Serum or plasma 05/25/2017 Serum or plasma 135 High 74-106 glucose measurement glucose measurement (mass/volume) (mass/volume) Anion Gap SerPl-sCnc 05/25/2017 Anion Gap 8 8-16 SerPl-sCnc BUN/Creat SerPl 05/25/2017 BUN/Creat SerPl 18.5 Chloride SerPl-sCnc 05/25/2017 Chloride SerPl-sCnc 106 98-107 Potassium SerPl-sCnc 05/25/2017 Potassium 3.8 3.5-5.1 SerPl-sCnc Serum or plasma 05/25/2017 Serum or plasma 0.7 0.6-1.3 creatinine creatinine measurement measurement (mass/volum (mass/volume) Serum or plasma 05/25/2017 Serum or plasma 9.4 8.5-10. calcium measurement calcium measurement 1 (mass/volume) (mass/volume) Serum carbon dioxide 05/25/2017 Serum carbon 27 21-32 measurement dioxide measurement Inflammatory Bowel 04/15/2017 Atypical pANCA <1:20 titer Neg:<1: 7, 8 Disease 20 Saccharomyces cerevisiae, IgG < 20.0 units 0.0-24.9 7, 9 Saccharomyces cerevisiae, IgA < 20.0 units 0.0-24.9 7, 10 Laboratory test finding 03/17/2017 Calprotectin, Fecal 40 ug/g 0-120 7, 11 Pancreatic Elastase (Pe-1) > 500.0 ug/g >200 7, 12 Laboratory test finding 03/16/2017 Sedimentation Rate 28 mm/hr 0-30 7, 13 C-Reactive Protein,Cardiac 13.70 mg/L <3.0 7 Order 12/27/2016 Wrist Splint 8" Lace Up <pending> Seude Leatherette LT Small Laboratory test finding 06/25/2015 Duodenum, Biopsy See Note 14 Laboratory test finding 06/17/2015 C. Difficile Toxin A/B See Note 15 Porphyrins, Fecal 06/17/2015 Coproporphyrin, fecal < 12.0 0.0-44.9 16 Protoporphyrin, fecal < 12.0 0.0-150.0 17 Gliadin IgG/IgA Antibodies 05/21/2015 Antigliadin Abs, IgG 1 units 0-19 18 Antigliadin Abs, IgA 3 units 0-19 19 Laboratory test finding 05/21/2015 t-Transglutaminase IgA <2 U/mL 0-3 20 Laboratory test finding 05/14/2015 t-Transglutaminase IgA <2 U/mL 0-3 21 Gliadin IgG/IgA Antibodies 05/14/2015 Antigliadin Abs, IgG 2 units 0-19 22 Antigliadin Abs, IgA 3 units 0-19 23 Endomysial Antibody Iga 05/14/2015 Endomysial IgA Antibody Negative Negative t-Transglutaminase IgA <2 U/mL 0-3 24 Laboratory test finding 05/02/2015 Urine Bilirubin Negative Negative Urine Blood Negative Negative Urine Clarity SL Cloudy Clear Urine Color DK Yellow Yellow Urine Glucose (Ua) Negative Negative Urine Ketones Negative Negative Urine Leukocyte Esterase Negative Negative Urine Nitrite Negative Negative Urine Protein Negative Negative Urine Specific [place] 1.020 1.010-1.030 Urine Urobilinogen 0.2 0.2-1.0 Urine [...] 02/28/2012 Polyp Colon And/Or Rectum See Note 25 Anaerobic Culture W/ GR Stain 08/11/2010 Gram Stain; Anaerobic See Note 26 Specimen Anaerobic Culture See Note 27 Laboratory test finding 08/11/2010 Prosthesis/Prosthetic Device See Note 28 Routine Culture W/ Gram 08/11/2010 Gram Stain See Note 29 Stain Aerobic Culture See Note 30 Basic Metabolic Panel 08/09/2010 Glucose 103 mg/dL 76-115 BUN 8 mg/dL 5-23 Creatinine 0.8 mg/dL 0.5-1.4 Glom Filtration Rate, Estimate >60 mL/min >60 If >60 mL/min >60 31 BUN/Creat 10.0 Sodium 144 mEq/L 136-145 Potassium 3.9 mEq/L 3.5-5.1 Chloride 101 mEq/L 98-107 Carbon Dioxide 27 mEq/L 21-32 Anion Gap 20 mEq/L High 8-16 Calcium 8.9 mg/dL 8.5-10.1 CBC 08/09/2010 White Blood Count 5.1 K/uL 3.1-10.7 Red Blood Count 4.22 M/uL 3.90-5.40 Hemoglobin 12.7 gm/dL 11.6-15.8 Hematocrit 39.1 % 36.0-46.1 Mean Cell Volume 92.7 fl 80.9-99.0 Mean Corpuscular HGB 30.1 pg 25.9-32.7 Mean Corpuscular HGB Conc 32.5 g/dL 30.8-34.3 Platelet Count 198 K/uL 155-360 Red Cell Distri Width %CV 14.8 % High 11.7-14.4 Mean Platelet Volume 9.0 fL 8.9-12.4 Protime 08/09/2010 Protime 12.8 seconds 12.2-15.2 Inr 0.9 0.9-1.1 32 Laboratory test finding 08/09/2010 Act Partial Thrombo 32.2 seconds 23.4- 37.4 33 Time Urine Screen 08/09/2010 Urine Color YELLOW Yellow Urine Clarity CLEAR Clear Urine Glucose - Dipstick NEGATIVE mg/dL Negative Urine Bilirubin - Dipstick NEGATIVE Negative Urine Ketone NEGATIVE mg/dL Negative Urine Specific [place] 1.025 1.010-1.030 Urine Blood NEGATIVE Negative Urine PH 5.5 Low 6.5-7.5 Urine Protein - Dipstick NEGATIVE mg/dL Negative Urine Urobilinogen - Dipstick 0.2 E.U./dL 0.2-1.0 Urine Nitrite - Dipstick NEGATIVE Negative Urine Leuk Esterase NEGATIVE Negative Basic Metabolic Panel 03/25/2010 Glucose 91 mg/dL 76-115 BUN 12 mg/dL 5-23 Creatinine 0.9 mg/dL 0.5-1.4 Glom Filtration Rate, Estimate >60 mL/min >60 If >60 mL/min >60 34 BUN/Creat 13.3 Sodium 137 mEq/L 136-145 Potassium 3.7 mEq/L 3.5-5.1 Chloride 100 mEq/L 98-107 Carbon Dioxide 28 mEq/L 21-32 Anion Gap 13 mEq/L 8-16 Calcium 9.5 mg/dL 8.5-10.1 CBC 03/25/2010 White Blood Count 6.9 K/uL 3.1-10.7 Red Blood Count 4.15 M/uL 3.90-5.40 Hemoglobin 12.3 gm/dL 11.6-15.8 Hematocrit 38.9 % 36.0-46.1 Mean Cell Volume 93.7 fl 80.9-99.0 Mean Corpuscular HGB 29.6 pg 25.9-32.7 Mean Corpuscular HGB Conc 31.6 g/dL 30.8-34.3 Platelet Count 223 K/uL 155-360 Red Cell Distri Width %CV 13.7 % 11.7-14.4 Mean Platelet Volume 9.2 fL 8.9-12.4 Protime 03/25/2010 Protime 13.7 seconds 11.7-15.1 Inr 1.0 0.8-1.2 35 Laboratory test finding 03/25/2010 Act Partial Thrombo 33.7 seconds 23.4- 37.4 36 Time Urine Screen 03/25/2010 Urine Color YELLOW Yellow Urine Clarity CLEAR Clear Urine Glucose - Dipstick NEGATIVE mg/dL Negative Urine Bilirubin - Dipstick NEGATIVE Negative Urine Ketone NEGATIVE mg/dL Negative Urine Specific [place] 1.010 1.010-1.030 Urine Blood NEGATIVE Negative Urine PH 5.5 Low 6.5-7.5 Urine Protein - Dipstick NEGATIVE mg/dL Negative Urine Urobilinogen - Dipstick 0.2 E.U./dL 0.2-1.0 Urine Nitrite - Dipstick NEGATIVE Negative Urine Leuk Esterase NEGATIVE Negative Urine Screen 01/09/2009 Urine Color YELLOW Yellow 37 Urine Clarity CLEAR Clear 37 Urine Glucose - Dipstick NEGATIVE mg/dL Negative 37 Urine Bilirubin - Dipstick NEGATIVE Negative 37 Urine Ketone NEGATIVE mg/dL Negative 37 Urine Specific [place] >=1.030 1.010-1.030 37 Urine Blood NEGATIVE Negative 37 Urine PH 5.0 Low 6.5-7.5 37 Urine Protein - Dipstick NEGATIVE mg/dL Negative 37 Urine Urobilinogen - Dipstick 0.2 E.U./dL 0.2-1.0 37 Urine Nitrite - Dipstick NEGATIVE Negative 37 Urine Leuk Esterase NEGATIVE Negative 37 Laboratory test finding 01/09/2009 Act Partial Thrombo 32.5 seconds 23.4- 37.4 37 Time Protime 01/09/2009 Protime 13.0 seconds 11.8-14.6 37 Inr 1.0 0.9-1.1 37, 38 CBC 01/09/2009 White Blood Count 7.0 K/uL 3.1-10.7 37 Red Blood Count 5.12 M/uL 3.90-5.40 37 Hemoglobin 13.1 gm/dL 11.6-15.8 37 Hematocrit 41.6 % 36.0-46.1 37 Mean Cell Volume 81.3 fl 80.9-99.0 37 Mean Corpuscular HGB 25.6 pg Low 25.9-32.7 37 Mean Corpuscular HGB Conc 31.5 g/dL 30.8-34.3 37 Platelet Count 288 K/uL 155-360 37 Red Cell Distri Width %CV 14.5 % High 11.7-14.4 37 Mean Platelet Volume 9.1 fL 8.9-12.4 37 Basic Metabolic Panel 01/09/2009 Glucose 98 mg/dL 76-115 37 BUN 9 mg/dL 5-23 37 Creatinine 0.9 mg/dL 0.5-1.4 37 Glom Filtration Rate, Estimate >60 mL/min >60 37 If >60 mL/min >60 37, 39 BUN/Creat 10.0 37 Sodium 140 mEq/L 136-145 37 Potassium 4.0 mEq/L 3.5-5.1 37 Chloride 101 mEq/L 98-107 37 Carbon Dioxide 27 mEq/L 21-32 37 Anion Gap 16 mEq/L 8-16 37 Calcium 9.4 mg/dL 8.5-10.1 37 1 D62,Z47.1 2 Method: Sediplast Modified Westergren 3 LEFT KNEE OA 4 Note: Persistent reduction for 3 months or more in an eGFR <60 mL/min/1.73 m2 defines CKD. Patients with eGFR values >/=60 mL/min/1.73 m2 may also have CKD if evidence of persistent proteinuria is present. The original MDRD equation for estimated GFR is not valid for patients less than 18 years of age. Additional information may be found at www.kdoqi.org. 5 M17.12 6 NO METHICILLIN RESISTANT STAPHYLOCOCCUS AUREUS ISOLATED. 7 R19.7 8 The atypical pANCA pattern has been observed in a significant percentage of patients with ulcerative colitis, primary sclerosing cholangitis and autoimmune hepatitis. ASCA+/PANCA- Suggestive of Crohn's disease ASCA-/PANCA+ Suggestive of Ulcerative colitis 9 Negative <20.0 Equivocal 20.1 - 24.9 Positive >or=25.0 10 Negative <20.0 Equivocal 20.1 - 24.9 Positive [...] controls had antibody for both. Performed at: [address] [id number] Wellness Coach: Ryan Caballero MD, Phone: [phone] Concentration Interpretation Follow-Up <16 - 50 ug/g Normal None >50 -120 ug/g Borderline Re-evaluate in 4-6 weeks >120 ug/g Abnormal Repeat as clinically indicated 12 INFCE Result Units: ug Elast./g Severe Pancreatic Insufficiency: <100 Moderate Pancreatic Insufficiency: 100 - 200 Normal: >200 Performed at: [address] [id number] Wellness Coach: Ryan Caballero MD, Phone: [phone] 13 Method: Sediplast Modified Westergren 14 OPERATION/PROCEDURE Colonoscopy DIAGNOSIS: PART 1: "COLON, CECUM, [...] Signed Electronically signed LIS CANNON MD 1200 15 NEGATIVE FOR C. DIFFICILE TOXIN A/B. CORRELATE RESULTS WITH CLINICAL CONDITION. 16 INFCE Result Units: nmol/g dry wt. 17 INFCE Result Units: nmol/g dry wt. The performance characteristics of the listed assay was validated by [facility]. The [place] FDA has not approved or cleared this test. The results of these assay can be used for clinical diagnosis without FDA approval. [facility] is a CLIA certified, CAP accredited laboratory for performing high complexity assays such as this one. Performed at: [facility] [address] [place] [id number] Wellness Coach: Adriel Bailon PhD, Phone: [phone] 18 Negative 0 - 19 Weak Positive 20 - 30 Moderate to Strong Positive >30 19 Negative 0 - 19 Weak Positive 20 - 30 Moderate to Strong Positive >30 20 Negative 0 - 3 Weak Positive 4 - 10 Positive >10 Tissue Transglutaminase (tTG) has been identified as the endomysial antigen. Studies have demonstr- ated that endomysial IgA antibodies have over 99% specificity for gluten sensitive enteropathy. Performed at: [address] [id number] Wellness Coach: Tahira Toure MD, Phone: [phone] 21 Negative 0 - 3 Weak Positive 4 - 10 Positive >10 Tissue Transglutaminase (tTG) has been identified as the endomysial antigen. Studies have demonstr- ated that endomysial IgA antibodies have over 99% specificity for gluten sensitive enteropathy. Performed at: [address] [id number] Wellness Coach: Tahira Toure MD, Phone: [phone] 22 Negative 0 - 19 Weak Positive 20 - 30 Moderate to Strong Positive >30 23 Negative 0 - 19 Weak Positive 20 - 30 Moderate to Strong Positive >30 24 Negative 0 - 3 Weak Positive 4 - 10 Positive >10 Tissue Transglutaminase (tTG) has been identified as the endomysial antigen. Studies have demonstr- ated that endomysial IgA antibodies have over 99% specificity for gluten sensitive enteropathy. Performed at: [address] [id number] Wellness Coach: Tahira Toure MD, Phone: [phone] 25 OPERATION/PROCEDURE Gastroscopy, colonoscopy. DIAGNOSIS: "RECTUM, POLYPECTOMY": HYPERPLASTIC POLYPS, WITH HEALING CHANGES. Carli GROSS The specimen is received in formalin labeled, "RECTAL POLYPS" are four pieces of sotelo, soft tissue measuring up to 0.3 cm. in greatest dimension. Submitted in toto in one block. Carli MICROSCOPIC Sections show congested and inflamed colonic mucosa lined by an increased number of goblet cells with smooth muscle ingrowth. The glands have a serrated, saw tooth appearance. The nuclei are bland, and basal. PRE OPERATIVE DIAGNOSIS Epigastric and left sided abdominal pain. REVIEW CODE CODE: I Signed ARIEL STUART MD 1314 26 GRAM STAIN ! NO ORGANISMS SEEN 27 Organism 1 ! NO GROWTH 28 OPERATION/PROCEDURE Removal hardware, 2 wires, left 5th metacarpal DIAGNOSIS: "LEFT HAND, REMOVAL OF HARDWARE": SINGLE WIRE FRAGMENT, GROSSLY RECOGNIZED. WS/chriss 1420 INTERPRETATION COMMENT Note, only one wire was [...] I Signed RYAN BREEN MD 08/13/10 0824 29 GRAM STAIN ! NO ORGANISMS SEEN 30 NO GROWTH: FINAL REPORT 31 Note: Persistent reduction for 3 months or more in an eGFR <60 mL/min/1.73 m2 defines CKD. Patients with eGFR values >/=60 mL/min/1.73 m2 may also have CKD if evidence of persistent proteinuria is present. The original MDRD equation for estimated GFR is not valid for patients less than 18 years of age. Additional information may be found at www.kdoqi.org. 32 THERAPEUTIC INR RANGE: 2.0 - 3.0 DVT, Pulmonary embolus, prophylaxis against venous thrombosis or systemic embolization in high risk patients. 2.5 - 3.5 Mechanical heart valves 33 Is patient on heparin protocol? N Is patient on anticoagulants? Unknown QUERY: @EMR Pat ID: QUERY: @EMR Req #: QUERY: Anticoagulant Therapy? QUERY: Date of Last Dose: QUERY: Time of Last Dose: 34 Note: Persistent reduction for 3 months or more in an eGFR <60 mL/min/1.73 m2 defines CKD. Patients with eGFR values >/=60 mL/min/1.73 m2 may also have CKD if evidence of persistent proteinuria is present. The original MDRD equation for estimated GFR is not valid for patients less than 18 years of age. Additional information may be found at www.kdoqi.org. 35 THERAPEUTIC INR RANGE: 2.0 - 3.0 DVT, Pulmonary embolus, prophylaxis against venous thrombosis or systemic embolization in high risk patients. 2.5 - 3.5 Mechanical heart valves 36 Is patient on heparin protocol? N Is patient on anticoagulants? Unknown Specimen Comments: N QUERY: @EMR Pat ID: QUERY: @EMR Req #: QUERY: Anticoagulant Therapy? QUERY: Date of Last Dose: QUERY: Time of Last Dose: 37 Specimen: [id number] - TESTS: CBC, PT, PTT IS PATIENT ON HEPARIN PROTOCOL ? N IS PATIENT ON ANTICOAGULANTS? UNKNOWN TEST: CBC TEST: PT QUERY: Anticoagulant Therapy? QUERY: Date of Last Dose: QUERY: Time of Last Dose: TEST: PTT QUERY: Anticoagulant Therapy? QUERY: Date of Last Dose: QUERY: Time of Last Dose: 38 THERAPEUTIC INR RANGE: 2.0 - 3.0 DVT, Pulmonary embolus, prophylaxis against venous thrombosis or systemic embolization in high risk patients. 2.5 - 3.5 Mechanical heart valves 39 Note: Persistent reduction for 3 months or [...] Procedures Date CPT Code Description Status Comment 01/16/2018 60491 Pulse Oximetry Completed 12/25/2017 16351 Radiology, Knee 3 Views Completed 12/11/2017 33969 Total Knee Arthroplasty Completed medial&lateral compartments w/wo becker res 12/11/2017 60497 Total Knee Arthroplasty Completed medial&lateral compartments w/wo becker res 10/04/2017 09249 Asp./Injection major joint Completed 10/03/2017 59523 Radiology, Knee 3 Views Completed 10/03/2017 18134 Asp./Injection major joint Completed 06/26/2017 50765 Bronchospasm Provocation Completed Evaluation Multi Spirometric Determinati 06/26/2017 32188 Spirometry Completed 05/24/2017 94238 EKG Interpretation And Report Completed Only 04/17/2017 Colonoscopy Completed Document: 04/17/17 - Op Report - Colonoscopy Document: 04/17/17 - COlonoscopy Pictures Document: 04/17/17 - Pathology Final Report 04/17/2017 69471 Colonoscopy With Biopsy Completed 12/27/2016 40622 Radiology, Hand: Minimum Completed Three Views 12/27/2016 13423 Radiology, Hand: Minimum Completed Three Views 09/20/2016 69914 Radiologic Exam Hip Completed Unilateral With Pelvis 2-3 Views 09/20/2016 20893 Asp./Injection major joint Completed 08/16/2016 02818 Myocardial Imaging Completed Tomographic Multiple Study AT Rest Or Stress 08/16/2016 52093 Stress Test Interpre And Completed Report Only 08/16/2016 06122 Stress Test Physician Super Completed Only 06/25/2015 Colonoscopy Completed Document: 06/25/15 - Operative Report Colonoscopy Document: 06/25/15 - Images Colonoscopy 06/25/2015 14832 Colonoscopy With Biopsy Completed 06/25/2015 27114 EGD With Biopsy Completed 09/19/2014 33852 X-Ray Knee Complete Completed W/Obliques & Tunnel And/Or Standing Views 03/10/2014 69997 Radiology, Knee 3 Views Completed 03/10/201445742 Asp./Injection major joint Completed 10/29/201204654 Asp./Injection major joint Completed 10/23/201289880 Asp./Injection major joint Completed 10/15/2012 Asp./Injection major joint Completed 09/26/2012 61755 Radiology, Knee 3 Views Completed 06/13/201244931 Asp./Injection major joint Completed 03/21/201207677 Asp./Injection major joint Completed 03/02/201215932 Asp./Injection major joint Completed 03/02/2012 12517 Radiology, Knee 3 Views Completed 02/28/2012 11786 EGD Completed 02/28/2012 77909 Colonoscopy With Biopsy Completed Forceps 11/10/201114538 Asp./Injection major joint Completed 02/07/2011 12361 Radiology, Wrist Complete Completed 02/04/2011 06540 Echocardiogram Complete Completed 01/06/2011 29790 Radiology, Wrist Complete Completed 01/04/2011 06835 Radiology, Foot, Complete-3 Completed Views 12/27/2010 00692 Radiology, Wrist Complete Completed 12/20/2010 89027 Fracture distal radial-closed Completed 09/02/2010 28347 Radiology, Hand: Minimum Completed Three Views 08/19/2010 54547 Radiology, Hand: Minimum Completed Three Views 08/11/2010 68833 Anesthesia, Lower Arm Surgery Completed Open/Surg Arthroscopic/Endoscopic 08/11/2010 98003 Removal of implant Completed superficial buried wire, pin or norma 06/07/2010 03769 Radiology, Hand: Minimum Completed Three Views 05/07/2010 54578 Radiology, Hand: Minimum Completed Three Views 04/19/2010 22029 Radiology, Hand: Minimum Completed Three Views 03/31/2010 65640 FX Metacarpal open single Completed w/internal fixation 03/31/2010 87713 Anesthesia, Lower Arm Surgery Completed Open/Surg Arthroscopic/Endoscopic 03/26/2010 93587 EKG-Tracing And Report Completed 03/25/2010 48166 EKG Interpretation And Report Completed Only 03/25/2010 70490 Radiology, Hand: Minimum Completed Three Views 03/04/2010 03735 Radiology, Hand: Minimum Completed Three Views 02/25/2010 21876 Radiology, Hand: Minimum Completed Three Views 02/11/2010 23437 Radiology, Hand: Minimum Completed Three Views 01/28/2010 55225 Radiology, Hand: Minimum Completed Three Views 01/21/2010 25079 FX Metacarpal closed single Completed w/o manipulation 04/27/200928985 Asp./Injection major joint Completed 03/09/2009 Asp./Injection major joint Completed 01/13/2009 16464 Arthroscopy w/meniscectomy Completed including meniscal shaving 01/13/2009 20104 Chrondroplasty Completed debridement/shaving of articular cartilage 01/09/2009 24239 EKG Interpretation And Report Completed Only 01/01/2008 11358 Radiology, L-S Spine 2 Or 3 Completed Views 11/26/2007 Asp/Injection small Completed joint/bursa (ie-fingers,toes) 11/01/2007 Asp./Injection major joint Completed 10/25/2007 Asp./Injection major joint Completed 10/11/2007 Asp./Injection major joint Completed 10/04/2007 Asp./Injection major joint Completed 09/27/2007 Asp./Injection major joint Completed 09/04/2007 Asp./Injection major joint Completed 05/30/2007 72614 Colonoscopy Completed 05/30/2007 05334 EGD With Biopsy Completed 05/30/2007 Colonoscopy Completed Document: 05/30/07 - Operative Report 05/01/2007 Asp./Injection major joint Completed 02/28/2007 05356 Arthroscopy w/meniscectomy Completed including meniscal shaving 02/28/2007 77134 Chrondroplasty Completed debridement/shaving of articular cartilage 11/27/2006 Asp./Injection major joint Completed 07/28/2005 70144 FX Metatarsal-Closed W/O Completed Encounters Type Date Location Provider CPT E/M Dx Office Visit 01/16/2018 2:45p [place] [address] J45.20 J30.89 D86.0 F17.210 Z71.6 Office Visit 11/09/2017 10:30a [facility] Ricardo Oropeza M.D. 27144 M17.12 Office Visit 10/12/2017 3:30p [place] [address] J45.20 J30.89 Office Visit 10/03/2017 11:00a [facility] Ricardo Oropeza M.D. 46580 M17.12 Office Visit 06/07/2017 3:00p [place] [address] J45.20 D86.89 B38.2 E66.01 J02.9 F17.210 Z71.6 Z23 Office Visit 04/27/2017 2:00[place] [address] R19.7 Office Visit 04/06/2017 1:00[place] [address] R19.7 R10.9 Office Visit 03/16/2017 1:45[place] [address] R19.7 K52.832 Office Visit 12/27/2016 9:45a [facility]opa[facility] Office Daysi Mendoza 02666 M79.642 RPAC Office Visit 09/20/2016 8:45a [facility] Office Ricardo Oropeza M.D. 93904 M25.552 M70.62 Office Visit 07/23/2015 2:45p Surgical Office Giovani Murry 42382 K52.9 M.DJaiem Office Visit 07/01/2015 2:45p Surgical Office Giovani Murry 12803 K52.9 MJaimeDJaime M05.40 K57.90 Office Visit 06/03/2015 2:00p Surgical Office Giovani Murry 23787 R10.84 Radha Trujillo Office Visit 05/14/2015 9:30a Surgical Office Giovani Murry 17331 K90.0 Radha Trujillo Office Visit 09/30/2014 10:57a [place] [address] 729.92 Office Visit 09/30/2014 11:01a [facility] Scruggs M.D. 38372 922.2 [facility] 285.9 Office Visit 09/19/2014 11:00a Orthopaedic Office Ricardo Oropeza M.D. 30827 714.0 715.16 Office Visit 09/08/2014 9:45a Orthopaedic Office Daysi Mendoza 00297 714.0 RPAC 715.16 Office Visit 06/13/2014 9:15a [place], [address] 714.0 FACS 715.16 Office Visit 06/05/2014 9:45a [place], [address] 714.0 FACS 715.16 717.40 Office Visit 04/21/2014 9:45a [place], [address] 714.0 FACS Office Visit 03/10/2014 8:45a [place], [address] 715.16 FACS 715.16 714.0 714.0 719.46 719.46 Office Visit 2013 10:30a [place], [address] 715.16 FACS Office Visit 01/01/2013 1:50p [place] [address] 715.16 Office Visit 12/04/2012 2:40p [place] [address] 715.16 Office Visit 10/15/2012 3:10p [place] [address] 715.16 Office Visit 10/03/2012 1:50p [place] [address] 715.16 Office Visit 09/26/2012 2:30p [place] [address] 715.16 717.40 Office Visit 07/25/2012 2:00p [place] [address] 715.16 726.61 Office Visit 06/27/2012 8:50a [place] [address] 715.16 726.61 Office Visit 06/13/2012 8:50a [place] [address] 715.16 726.61 Office Visit 04/11/2012 2:40p [place] [address] 715.16 726.61 Office Visit 03/22/2012 3:00p Surgical Office Giovani Murry 69414 789.07 HRadha Sandoval Office Visit 03/21/2012 2:00p [place] [address] 726.61 715.16 Office Visit 03/08/2012 3:00p Surgical Office MercedniraliGiovani 38665 V67.09 HRadha Sandoval 789.07 305.1 Office Visit 03/02/2012 10:40a [place] [address] 726.61 Office Visit 02/16/2012 3:15p Surgical Office MercedniraliGiovani 70076 789.07 HRadha Sandoval Office Visit 12/26/2011 11:30a Surgical Office Giovani Murry 96478 789.07 Radha Trujillo Office Visit 11/10/2011 2:10p [place] [address] 715.16 726.61 Office Visit 09/21/2011 9:00a Surgical Office JeanmarieGiovani 55430 789.07 HRadha Sandoval 789.00 Office Visit 01/04/2011 3:00p [place] [address] 719.47 E016.9 Office Visit 11/08/2010 2:15p Orthopaedic Office Rock Boyd 28143 V54.09 MD 815.02 Office Visit 10/04/2010 2:45p Orthopaedic Office Megha Trent, N.P. 85336 V67.4 815.02 V67.09 Office Visit 09/02/2010 2:15p Orthopaedic Office Megha Trent, N.P. 38304 V54.09 Office Visit 08/13/2010 11:30a Orthopaedic Office Rock Boyd 44765 V67.4 MD V67.09 Office Visit 08/09/2010 8:30a [place] [address] V67.4 V54.09 Office Visit 03/26/2010 2:20p Cardiology [place] [address] 401.1 272.4 305.1 V72.81 Office Visit 03/04/2010 1:45p Orthopaedic Office TwanMegha, N.PJaime 84908 733.82 815.01 Office Visit 04/27/2009 1:15p [place] [address] V67.09 719.46 Office Visit 12/22/2008 11:30a [place] [address] 715.16 836.0 Office Visit 12/04/2008 10:15a [place] [address] 719.46 Office Visit 07/10/2008 11:00a [place] [address] 715.16 Office Visit 05/02/2008 11:00a [place] [address] 715.16 Office Visit 02/13/2008 11:00a [place] [address] 715.16 836.0 836.1 Office Visit 01/01/2008 2:00p [place] [address] 719.46 724.2 Office Visit 11/26/2007 11:15a [place] [address] 836.0 836.1 715.16 Office Visit 09/04/2007 2:00p [place] [address] 715.16 836.0 Office Visit 07/06/2007 12:15p [place] [address] 836.0 715.16 Office Visit 06/28/2007 10:20[place] [address] 530.81 787.20 Office Visit 05/17/2007 1:15[place] [address] 789.00 787.20 Office Visit 02/09/2007 10:30a [place] [address] 836.0 836.1 715.16 Office Visit 01/15/2007 10:15a [place] [address] 715.16 719.46 Office Visit 11/27/2006 12:15p [place] [address] 715.16 Plan of Care Future Appointment(s):03/19/2018 11:00 am - Zhang Blackwlel MD at [facility]opaedic Bogkdp2807/23/2018 1:30 pm - Tay Walker MD at [facility]16/08/2018 - Georgie White MDZ96.652 Presence of left artificial knee [id number] Aftercare following joint replacement surgery
--- OUTSIDE RECORDS SUMMARY | 2018-03-21 14:37 | XMS REPORT | Continuity of Care Document ---
:1960 External Reference #:[id number] Author Name Kari Manning Care Team Providers Name Role Phone Allie Hudson M.D. 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 Primary Care Physician Unavailable Payers Type Date Identification Numbers Payment Provider Subscriber Policy Number: [id number] Medicare Kamila Parker PayID: [id number] [address] [place] [address] Policy Number: [id number] [facility] Kamila Parker PayID: [id number] [address] [place] [address] Advance Directives Description No Information Available Problems Description No Information Family History Description No Information Available Social History Type Date Description Comments Sex Unknown Allergies, Adverse Reactions, Alerts Description No Information Medications Medication Date Status Form Strength Qnty SIG Indications Ordering Provider Apriso Active Caps ER 0.375gm four Unknown 000 24HR capsules once per day Gabapentin Active Tablets 800mg Unknown 000 Hydrocodone-Yehuda Active Tablets 10-325mg Unknown taminophen 000 Acidophilus Active Capsules Unknown 000 Amlodipine Active Tablets 5mg 1 by mouth Unknown Besylate 000 every day Folic Acid Active Tablets 1mg 1 by mouth Unknown 000 every day Lisinopril Active Tablets 10mg 1 by mouth Unknown 000 every day Nexium Active Capsules 40mg 1 by mouth Unknown 000 DR every day Aspir-[address] 81mg 1 by mouth Unknown 000 every day Savella Active Tablets 50mg Unknown 000 Pravastatin Active Tablets 80mg 1 by mouth Unknown Sodium 000 every day Lamotrigine ER Active Tablets ER Unknown 000 24HR Clonazepam Active Tablets 0.5mg Unknown 000 Methotrexate Active Tablets 2.5mg Unknown 000 Promethazine Active Unknown HCL 000 Loperamide HCL Active Capsules 2mg Unknown 000 Quetiapine Active Tablets 200mg 1/2 tab at Unknown Fumarate 000 at bedtime x 1 week then 1 tab at at bedtime Immunizations Description No Information Available Vital Signs Description No Information Available Results Description No Information Available Procedures Description No Information Available Encounters Description No Information Available Plan of Treatment No Information Available
--- OUTSIDE RECORDS SUMMARY | 2018-03-21 14:37 | XMS REPORT | Continuity of Care Document ---
:1960 External Reference #:[id number] Author Name Corina Gaspar Care Team Providers Name Role Phone Allie Hudson M.D. 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 Primary Care Physician Unavailable Payers Type Date Identification Numbers Payment Provider Subscriber Policy Number: [id number] Medicare Kamila Parker PayID: [id number] [address] [place] [address] Policy Number: [id number] [facility] Kamila Parker PayID: [id number] [address] [place] [address] Advance Directives Description No Information Available Problems Description No Information Family History Date Family Member(s) Problem(s) Comments Father due to Unknown Causes () : (age 72 Years) Mother due to Dementia First Brother 62 First Brother Asthma First Sister 64 First Sister Rheumatoid Arthritis First Sister Fibromyalgia Social History Type Date Description Comments Sex Unknown Tobacco Use Start: Unknown currently smokes 1/2 Pack Daily ETOH Use Denies alcohol use Recreational Drug Use Never Used Drugs Allergies, Adverse Reactions, Alerts Date Description Reaction Status Severity Comments 03/19/2018 Cephalexin Active 03/19/2018 Simvastatin Active 03/19/2018 Amoxicillin Active Medications Medication Date Status Form Strength Qnty SIG Indications Ordering Provider Apriso / Active Caps ER 0.375gm four capsules Unknown 0000 24HR once per day Gabapentin /00/ Active Tablets 800mg Unknown 0000 Hydrocodone-Ac / Active Tablets 10-325mg Unknown etaminophen 0000 Acidophilus 0000/ Active Capsules Unknown 0000 Amlodipine 00/00/ Active Tablets 5mg 1 by mouth Unknown Besylate 0000 every day Folic Acid 00/00/ Active Tablets 1mg 1 by mouth Unknown 0000 every day Lisinopril 0000/ Active Tablets 10mg 1 by mouth Unknown 0000 every day Nexium 00/ Active Capsules 40mg 1 by mouth Unknown 0000 DR every day Aspir-81 / Active Tablets DR 81mg 1 by mouth Unknown 0000 every day Savella / Active Tablets 50mg Unknown 0000 Pravastatin / Active Tablets 80mg 1 by mouth Unknown Sodium 0000 every day Lamotrigine ER / Active Tablets ER Unknown 0000 24HR Clonazepam / Active Tablets 0.5mg Unknown 0000 Methotrexate / Active Tablets 2.5mg Unknown 0000 Promethazine / Active Unknown HCL 0000 Loperamide HCL / Active Capsules 2mg Unknown 0000 Quetiapine / Active Tablets 200mg 1/2 tab at at Unknown Fumarate 0000 bedtime x 1 week then 1 tab at at bedtime Duloxetine HCL / Active Caps DR 60mg take one Unknown 0000 Part capsule by mouth, twice a day Montelukast / Active Tablets 10mg 1 by mouth Unknown Sodium 0000 every day Baclofen / Active Tablets 10mg one tab daily Unknown 0000 at night Embeda / Active Capsules 20-0.8mg Unknown 0000 ER Cetirizine HCL / Active 2.5 Unknown 0000 milliliters every night Meclizine HCL / Active Tablets 25mg 1 by mouth Unknown 0000 three times a day Immunizations Description No Information Available Vital Signs Date Vital Result Comment 03/19/2018 2:20pm Weight 254.00 lb Height 63.25 inches 5'3.25" BMI (Body Mass Index) 44.6 kg/m2 BP Systolic 150 mmHg BP Diastolic 78 mmHg Heart Rate 101 /min O2 % BldC Oximetry 97 % Body Temperature 97.1 F Pain Level 0 Results Description No Information Available Procedures Description No Information Available Encounters Description No Information Available Plan of Treatment No Information Available
--- OUTSIDE RECORDS SUMMARY | 2018-03-21 14:37 | XMS REPORT | Continuity of Care Document ---
:1960 External Reference #:[id number] Author Name Tigist Louis NP Address [address] [place] [address] Care Team Providers Name Role Phone Allie Hudson M.D. 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 Primary Care Physician Unavailable Payers Type Date Identification Numbers Payment Provider Subscriber Policy Number: [id number] Medicare Kamila Parker PayID: [id number] [address] [place] [address] Policy Number: [id number] [facility] Kamila Parker PayID: [id number] [address] [place] [address] Advance Directives Description No Information Available Problems [...] Form Strength Qnty SIG Indications Ordering Provider Mometasone 03/19/ Active Suspension 50mcg/Act 34gm 2 squirts Javon Furtristin 2017 each nostril David, every day M.D. Apriso 00// Active Caps ER 0.375gm four Unknown 0000 24HR capsules once per day Gabapentin 00/00/ Active Tablets 800mg Unknown 0000 Hydrocodone-Ac / Active Tablets 10-325mg Unknown etaminophen 0000 Acidophilus / Active Capsules Unknown 0000 Amlodipine 00/00/ Active Tablets 5mg 1 by mouth Unknown Besylate 0000 every day Folic Acid / Active Tablets 1mg 1 by mouth Unknown 0000 every day Lisinopril / Active Tablets 10mg 1 by mouth Unknown 0000 every day Nexium / Active Capsules DR 40mg 1 by mouth Unknown 0000 every day Aspir-81 00/ Active Tablets DR 81mg 1 by mouth [...] / Active Tablets 200mg 1/2 tab at Unknown Fumarate 0000 at bedtime x 1 week then 1 tab at at bedtime Duloxetine HCL / Active Caps DR 60mg take one Unknown 0000 Part capsule by mouth, twice a day Montelukast / Active Tablets 10mg 1 by mouth Unknown Sodium 0000 every day Baclofen / Active Tablets 10mg one tab Unknown 0000 daily at night Embeda / Active Capsules ER 20-0.8mg Unknown 0000 Cetirizine HCL / Active 2.5 Unknown 0000 [...] 0 Results Description No Information Available Procedures Date Code Description Status 03/19/2018 22820 Tympanometry Completed 03/19/2018 29361 Audiometry, Comprehensive Completed Encounters Type Date Location Provider Dx Diagnosis Office Visit 03/19/2018 Main Office Tigist Louis NP R42 Dizziness and 2:00p giddiness Plan of Treatment Future Appointment(s):04/24/2018 1:45 pm - Tigist Louis NP at Main Office
[2018-03-21 15:36] VITALS: BP 139/63
--- NOTE | 2018-03-21 15:54 | UC ---
Throat Pain/Nasal Malcolm HPI - HPI Summary HPI Summary: 58-year-old woman comes in with almost 7 days of runny nose cough chest congestion. Chest congestion is getting worse now she started to wheeze. She does have asthma and this making her asthma symptoms worse. Patient reports she 's been admitted to the hospital before with a bronchitis and asthma exacerbation. Her albuterol helps briefly but then things get worse again. - History of Current Complaint Chief Complaint: UCRespiratory Stated Complaint: COUGH, SORE THROAT Time Seen by Provider: 03/21/18 15:27 Hx Last Menstrual Period: n/a Pain Intensity: 0 - Allergies/Home Medications Allergies/Adverse Reactions: Allergies Allergy/AdvReac Type Severity Reaction Status Date / Time amoxicillin Allergy GI Upset Verified 03/21/18 15:32 cephalexin [From Keflex] Allergy Hives Verified 03/21/18 15:32 simvastatin Allergy Palpitations, Verified 03/21/18 15:32 heart races PMH/Surg Hx/FS Hx/Imm Hx Respiratory History: Asthma - Surgical History Surgical History: Yes Surgery Procedure, Year, and Place: LAPROSCOPIC EDOMETRIOSIS, LT SHOULDER, HYSTERECTOMY, 1992 DISKECTOMY,LOW BACK SURGERY 2003 HEMILAMINECTOMY/DISKECTOMY, APPENDECTOMY, ARTHROSCOPIC ON BOTH KNEES, TOTAL RT KNEE REPLACEMENT, THROAT SURGERY,LEFT HAND SURGERY FOR BOXER FRACTURE - Family History Known Family History: Positive: Diabetes Negative: Cardiac Disease, Hypertension - Social History Alcohol Use: None Substance Use Type: None Substance Use Comment - Amount & Last Used: hydrocodone Smoking Status (MU): Current Every Day Smoker Type: Cigarettes Amount Used/How Often: 1/2 PPD X 7 YEARS Have You Smoked in the Last Year: Yes Household Exposure Type: Cigarettes Review of Systems Constitutional: Negative Skin: Negative Eyes: Negative ENT: Sore Throat, Sinus Congestion Respiratory: Shortness Of Breath, Cough, Other - see hpi Cardiovascular: Negative Gastrointestinal: Negative Motor: Negative Neurovascular: Negative Musculoskeletal: Negative Neurological: Negative Psychological: Negative Is Patient Immunocompromised?: No All Other Systems Reviewed And Are Negative: Yes Physical Exam Triage Information Reviewed: Yes Appearance: No Pain Distress, Well-Nourished, Ill-Appearing - mild Vital Signs: Initial Vital Signs Temp 97.6 F 03/21/18 15:30 Pulse 84 03/21/18 15:30 Resp 18 03/21/18 15:30 BP 139/63 03/21/18 15:30 Pulse Ox 98 03/21/18 15:30 Vital Signs Reviewed: Yes Eye Exam: Normal Eyes: Positive: Conjunctiva Clear ENT: Positive: Pharyngeal erythema, Nasal congestion, Nasal drainage, TMs normal Neck exam: Normal Neck: Positive: Supple Respiratory Exam: Normal Respiratory: Positive: Lungs clear, Normal breath sounds, No respiratory distress Cardiovascular: Positive: RRR Musculoskeletal Exam: Normal Musculoskeletal: Positive: Strength Intact, ROM Intact Neurological Exam: Normal Neurological: Positive: Alert, Muscle Tone Normal Psychological Exam: Normal Psychological: Positive: Age Appropriate Behavior Skin Exam: Normal Throat Pain/Nasal Course/Dx - Course Course Of Treatment: Due to the infection making her asthma worse than her prior history of admission to the hospital I plan to treat with an antibiotic and also start a prednisone course. Follow up primary care doctor recheck sooner if worse. - Differential Dx/Diagnosis Provider Diagnoses: bronchitis. asthma exacerbation Discharge - Sign-Out/Discharge Documenting (check all that apply): Patient Departure All imaging exams completed and their final reports reviewed: No Studies - Discharge Plan Condition: Stable Disposition: HOME Prescriptions: Levofloxacin TAB* [Levaquin TAB*] 750 mg PO DAILY #7 tab predniSONE TAB* [Deltasone 20 MG TAB*] 40 mg PO DAILY #10 tab Patient Education Materials: Acute Bronchitis (ED), Asthma (ED) Referrals: Allie Hudson MD [Primary Care Provider] - Additional Instructions: FOLLOW UP WITH YOUR DOCTOR IF NOT COMPLETELY IMPROVED. GET RECHECKED FOR ANY WORSENING OF YOUR CONDITION OR QUESTIONS OR CONCERNS. - Billing Disposition and Condition Condition: STABLE Disposition: Home
== END 2018-03-21 16:01 | disposition home or self-care (01) ==
LOC: UCCORT 14:14
DX: J40 Bronchitis, not specified as acute or chronic (principal); F17.210 Nicotine dependence, cigarettes, uncomplicated; Z88.1 Allergy status to other antibiotic agents; Z88.8 Allergy status to other drugs, medicaments and biological substances; Z96.651 Presence of right artificial knee joint
CPT/HCPCS: 99212; G0463